=== PATIENT | female | born 1955 ===

== ENCOUNTER 2017-03-18 08:18 | Emergency (ER) | payer MEDICAID ==
[2017-03-18 08:27] VITALS: BP 126/75; PULSE 117; O2SAT 98; BMI 23.0
[2017-03-18] MEDS ORDERED: Albuterol-Ipratrop 3 mg / 0.5 (3 ml) UD INH STA (08:56)
[2017-03-18] MEDS ORDERED: Sodium Chloride 0.9% 500 ML IV STA (08:56)
--- NOTE | 2017-03-18 09:08 | ED PDOC ---
HPI: General Adult Time Seen by Provider: 03/18/17 08:35 Chief Complaint (Nursing): Flu-like Symptoms Chief Complaint (Provider): Flu-like Symptoms History Per: Patient History/Exam Limitations: no limitations Onset/Duration Of Symptoms: Days (x 4) Current Symptoms Are (Timing): Still Present Additional Complaint(s): Christy is a 61 year old female who presents to the [facility] complaining of headache, chest tightness, sore throat, and coughing with green sputum for 4 days. Patient also complaints of chest tightness and sore throat. States her CD 4 count is "good". Denies fever and chest pain. PMD: Ran Past Medical History Reviewed: Historical Data, Nursing Documentation, Vital Signs Vital Signs: Last Vital Signs Temp 99 F 03/18/17 11:08 Pulse 117 H 03/18/17 08:26 Resp BP 126/75 03/18/17 08:26 Pulse Ox 98 03/18/17 11:10 - Medical History PMH: Anemia, Anxiety, Asthma, Bronchitis, Depression, Gastritis, HIV, Osteoporosis - Surgical History Surgical History: - Family History Family History: States: Unknown Family Hx - Immunization History Hx Tetanus Toxoid Vaccination: No Hx Influenza Vaccination: Yes Hx Pneumococcal Vaccination: No - Home Medications Home Medications: Ambulatory Orders Medication Instructions Recorded Emtricitabine/Tenofovir Diso 1 tab PO DAILY 08/06/13 [Truvada 200 MG-300 MG] Nelfinavir [Viracept] 1,250 mg PO BID 08/06/13 Lubiprostone [Amitiza] 8 mcg PO BID 06/27/14 Fexofenadine HCl 60 mg PO DAILY PRN 07/15/14 Fluticasone Propionate [Flonase] 1 spr INH DAILY 07/21/14 Acetaminophen [Tylenol] 325 mg PO PRN PRN 10/07/14 Albuterol HFA [Ventolin HFA 90 0.09 mg IH DAILY 10/14/15 mcg/actuation (8 g)] Alprazolam [Xanax] 1 mg PO BID 10/14/15 Mometasone Furoate [Nasonex] 0.05 mg NS DAILY 10/14/15 Zolpidem Tartrate [Ambien] 10 mg PO HS 10/14/15 Benzonatate [Tessalon Perles] 100 mg PO BID #15 sgl 05/01/16 Cephalexin [cephalexin] 500 mg PO Q6 #28 cap 09/26/16 traMADol [Ultram] 50 mg PO Q6 #30 tab 09/26/16 Albuterol HFA [Ventolin HFA 90 2 puff IH [id number] PRN #1 bottle 03/18/17 mcg/actuation (8 g)] Azithromycin [Zithromax] 250 mg PO DAILY #4 tab 03/18/17 Ferrous Sulfate [Feosol] 324 mg PO TID #15 ect 03/18/17 - Allergies Allergies/Adverse Reactions: Allergies Allergy/AdvReac Type Severity Reaction Status Date / Time No Known Allergies Allergy Verified 09/26/16 16:07 Review of Systems ROS Statement: Except As Marked, All Systems Reviewed And Found Negative Constitutional: Negative for: Fever ENT: Positive for: Throat Pain Cardiovascular: Negative for: Chest Pain Respiratory: Positive for: Cough (with green sputum), Sputum (green) Neurological: Positive for: Other (Headache) Physical Exam - Reviewed Nursing Documentation Reviewed: Yes Vital Signs Reviewed: Yes - Physical Exam Appears: Positive for: Non-toxic Head Exam: Positive for: ATRAUMATIC, NORMAL INSPECTION, NORMOCEPHALIC Eye Exam: Positive for: Normal appearance ENT: Positive for: Pharynx Is (Clear), Other (Uvula midline). Negative for: Tonsillar Exudate Neck: Positive for: Normal Cardiovascular/Chest: Positive for: Regular Rate, Rhythm Respiratory: Positive for: Normal Breath Sounds Extremity: Positive for: Normal ROM Neurologic/Psych: Positive for: Alert - Laboratory Results Result Diagrams: 03/18/17 09:57 03/18/17 09:57 - ECG O2 Sat by Pulse Oximetry: 98 (RA) Pulse Ox Interpretation: Normal Medical Decision Making Medical Decision Making: Time: 08:55 Initial Impression: Upper Respiratory Infection/ Pneumonia / Bronchitis Initial Plan: - VBG Shock Panel - CMP - CBC - Chest X-ray - Duoneb 3 mg /0.5 mg (3ml) UD - Sodium Chloride 0.9% 500 ml IV 500 mls/hr - Tylenol 325 mg tab - Blood culture - Peak Flow Pre/Post Treatment - Influenza A B - Rapid Strep Group A Antigen Time: 10:00 Chest X-Ray FINDINGS: LUNGS: No active pulmonary disease. PLEURA: No significant pleural effusion identified. No pneumothorax apparent. CARDIOVASCULAR: Normal. OSSEOUS STRUCTURES: No significant abnormalities. VISUALIZED UPPER ABDOMEN: Normal. OTHER FINDINGS: None. IMPRESSION: No interval acute cardiopulmonary disease appreciated. Scribe Attestation: Documented by Azael Starks, acting as a scribe for Madisyn Domínguez MD Provider Scribe Attestation: All medical record entries made by the Scribe were at my direction and personally dictated by me. I have reviewed the chart and agree that the record accurately reflects my personal performance of the history, physical exam, medical decision making, and the department course for this patient. I have also personally directed, reviewed, and agree with the discharge instructions and disposition. Disposition - Clinical Impression Clinical Impression: Acute bronchitis, Anemia - Disposition Referrals: Dash Carvajal MD [Family Provider] - Disposition: Routine/Home Disposition Time: 11:10 Condition: IMPROVED Prescriptions: Albuterol HFA [Ventolin HFA 90 mcg/actuation (8 g)] 2 puff IH [id number] PRN #1 bottle PRN Reason: Shortness Of Breath Azithromycin [Zithromax] 250 mg PO DAILY #4 tab Ferrous Sulfate [Feosol] 324 mg PO TID #15 ect Instructions: Acute Bronchitis (ED), Anemia (ED) Forms: [employer] (Cym[employer])
[2017-03-18] MEDS ORDERED: Albuterol-Ipratrop 3 mg / 0.5 (3 ml) UD ONE (09:21)
[2017-03-18 09:54] LABS: VENOUS BLOOD GAS BASE EXCESS 2.7 mmol/L (0.0-2.0); VENOUS BLOOD GAS PCO2 33 mmHg (40-60)
--- NOTE | 2017-03-18 10:02 | RAD ---
HISTORY: Cough COMPARISON: Chest radiographs 08/20/2014. TECHNIQUE: Chest PA and lateral FINDINGS: LUNGS: No active pulmonary disease. PLEURA: No significant pleural effusion identified. No pneumothorax apparent. CARDIOVASCULAR: Normal. OSSEOUS STRUCTURES: No significant abnormalities. VISUALIZED UPPER ABDOMEN: Normal. OTHER FINDINGS: None. IMPRESSION: No interval acute cardiopulmonary disease appreciated.
[2017-03-18 10:08] LABS: BASO % 0.6 % (0.0-2.0); EOS % 0.4 % (0.0-4.0); HEMATOCRIT 30.9 % (34.0-47.0); LYMPH # 0.7 K/uL (1.0-4.3); LYMPH % 23.3 % (20.0-40.0); MEAN CELL VOLUME 77.2 fl (81.0-99.0); MEAN CORPUSCULAR HEMOGLOBIN 24.6 pg (27.0-31.0); MEAN CORPUSCULAR HGB CONC 31.8 g/dL (33.0-37.0); MEAN PLATELET VOLUME 7.9 fl (7.2-11.7); MONO # 0.4 K/uL (0.0-0.8); MONO % 11.6 % (0.0-10.0); NEUT % 64.1 % (50.0-75.0); RED CELL DISTRIBUTION WIDTH 15.4 % (11.5-14.5); WHITE BLOOD COUNT 3.1 K/uL (4.8-10.8)
[2017-03-18 10:39] LABS: ALB/GLOB RATIO 1.1 (1.0-2.1); ALKALINE PHOSPHATASE 98 U/L (38-126); ALT/SGPT 47 U/L (9-52); AST/SGOT 42 U/L (14-36); BILIRUBIN,TOTAL 0.2 mg/dl (0.2-1.3); BLOOD UREA NITROGEN 10 mg/dl (7-17); CALCIUM 8.8 mg/dL (8.4-10.2); CARBON DIOXIDE 22 mmol/L (22-30); CHLORIDE 105 mmol/L (98-107); GFR AFRICAN-AMERICAN > 60; GLUCOSE,RANDOM 97 mg/dL (65-105); POTASSIUM 3.8 MMOL/L (3.6-5.0); SODIUM 138 mmol/l (132-148); TOTAL PROTEIN 8.1 G/DL (6.3-8.2)
[2017-03-18 11:09] VITALS: TEMP 99
== END 2017-03-18 11:26 | disposition home or self-care (01) ==
LOC: H.ER 08:18
DX: J20.9 Acute bronchitis, unspecified (principal); D64.9 Anemia, unspecified; F32.9 Major depressive disorder, single episode, unspecified; F41.9 Anxiety disorder, unspecified; J45.909 Unspecified asthma, uncomplicated
CPT/HCPCS: 71020; 80053; 82803; 85025; 87040; 87070; 87430; 87804; 94150; 94640; 96360; 99283; J7040

== ENCOUNTER 2018-06-19 13:34 | Inpatient (IN) | payer MEDICAID ==
[2018-06-19 13:35] VITALS: BMI 23.0
[2018-06-19 13:49] VITALS: O2SAT 98
--- NOTE | 2018-06-19 16:50 | RAD ---
Date of service: 06/19/2018 HISTORY: Pre-admission COMPARISON: 03/18/2017. TECHNIQUE: Chest PA and lateral FINDINGS: LINES AND TUBES: None. LUNG AND PLEURA: The lungs are well inflated and clear. No pleural effusion or pneumothorax. HEART AND MEDIASTINUM: The heart is not enlarged. No aortic atherosclerotic calcifications present. The hilar and mediastinal contours are within normal limits. SKELETAL STRUCTURES: The bony structures are within normal limits for the patient's age. VISUALIZED UPPER ABDOMEN: Normal. OTHER FINDINGS: None. IMPRESSION: No active pulmonary disease.
[2018-06-19 17:15] LABS: BASO % 0.8 % (0.0-2.0); EOS # 0.1 K/uL (0.0-0.7); EOS % 1.1 % (0.0-4.0); HEMOGLOBIN 10.9 g/dL (12.0-16.0); LYMPH # 1.1 K/uL (1.0-4.3); LYMPH % 18.3 % (20.0-40.0); MEAN CELL VOLUME 77.2 fl (81.0-99.0); MEAN CORPUSCULAR HEMOGLOBIN 24.9 pg (27.0-31.0); MEAN CORPUSCULAR HGB CONC 32.2 g/dL (33.0-37.0); MEAN PLATELET VOLUME 7.9 fl (7.2-11.7); MONO # 0.5 K/uL (0.0-0.8); MONO % 7.7 % (0.0-10.0); NEUT # 4.2 K/uL (1.8-7.0); NEUT % 72.1 % (50.0-75.0); NRBC % 0.1 % (0.0-0.0); RBC 4.4 Mil/uL (3.80-5.20); RED CELL DISTRIBUTION WIDTH 14.1 % (11.5-14.5); WHITE BLOOD COUNT 5.9 K/uL (4.8-10.8)
[2018-06-19 17:22] LABS: SQUAMOUS EPITHIAL 1 /hpf (0-5); URINE BACTERIA RARE (<OCC); URINE BILIRUBIN NEGATIVE (NEGATIVE); URINE BLOOD NEGATIVE (NEGATIVE); URINE CLARITY SLIGHTY-CLOUDY (Clear); URINE COLOR YELLOW (YELLOW); URINE GLUCOSE (UA) NEG (NEGATIVE); URINE LEUKOCYTE ESTERASE NEG Leu/uL (Negative); URINE PROTEIN NEGATIVE (NEGATIVE); URINE UROBILINOGEN 0.2-1.0 mg/dL (0.2-1.0)
[2018-06-19 17:28] LABS: ALB/GLOB RATIO 1.2 (1.0-2.1); ALBUMIN 4.7 g/dL (3.5-5.0); ALT/SGPT 48 U/L (9-52); AST/SGOT 48 U/L (14-36); BLOOD UREA NITROGEN 12 mg/dl (7-17); CALCIUM 10.3 mg/dL (8.4-10.2); GFR NON-AFRICAN AMERICAN 50
[2018-06-19 17:42] LABS: BARBITURATES, UR NEGATIVE (NEGATIVE); BENZODIAZEPINES, UR POSITIVE (NEGATIVE); OPIATES, UR NEGATIVE (NEGATIVE); PHENCYCLIDINE, UR NEGATIVE (NEGATIVE)
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
[2018-06-19] MEDS ORDERED: Magnesium Hydroxide Susp 30 ml UD PO PRN (20:24)
[2018-06-19] MEDS ORDERED: Bismuth Subsalicylate 262 mg/15 ml Sus (240 ml) PO PRN (20:24)
[2018-06-19] MEDS ORDERED: Alum-Mag Hydrox-Simethicone Susp (30 mL) PO PRN (20:24)
--- NOTE | 2018-06-19 20:53 | PCM.BM ---
<Jin Walker - Last Filed: 06/19/18 20:51> Treatment Plan Problems - Problems identified on initial assessmt Feelings of Worthlessness Date Initiated: 06/19/18 Time Initiated: 20:51 Assessment reference: NA Status: Active Hopelessness/Helplessness Date Initiated: 06/19/18 Time Initiated: 20:52 Assessment reference: NA Status: Active Altered Sleep Patterns Date Initiated: 06/19/18 Time Initiated: 20:52 Assessment reference: NA Status: Active Less than Optimal Nutrition Date Initiated: 06/19/18 Time Initiated: 20:53 Assessment reference: NA Status: Active Treatment assets and liabiliti Patient Assests: cooperative, self-reliant, ADL independent, good support system, negotiates basic needs Patient Liabilities: physical pain, medical problems (HIV) - Milieu Protocol Maintain good personal hygiene: daily Encourage regular showers, daily Remind patient to perform daily oral care, daily Assist patient to perform ADL's Conduct patient checks and document Observation sheet: Q15 minutes Maintain personal safety: every shift Educate patient to report safety concerns to staff, every shift Monitor environment for contraband/sharps Medication safety: Monitor for expected outcome, potential side effects: every shift, Assess barriers to learning: every shift, Assess readiness for medication education: every shift <Idania Chacon - Last Filed: 06/20/18 11:37> - Diagnosis (1) Mood disorder Status: Acute Interventions: Medication management, Individual and group therapy, Psychoeducation 06/20/18 11:37 (2) Generalized anxiety disorder Status: Acute Interventions: Medication management, Individual and group therapy, Psychoeducation 06/20/18 11:38 (3) Benzodiazepine abuse Status: Acute Interventions: Medication management, Individual and group therapy, Psychoeducation 06/20/18 11:38 <Dinorah Andrew - Last Filed: 06/23/18 13:45> Family Contact Family involvement: Family/SO is involved Family contact: Patient agrees to contact, Family has been contacted by patient, Telephone contact initiated by staff Family contact name: Nabil- son Family contacted how many times per week?: 2 - Outside Agency [place] [facility] Care involvment: Information-sharing Agency contact name: Anatoliy Barrera APN Agency contact number: [phone] [facility] Care involvment: Information-sharing Agency contact name: Cornelius Landry Agency contact number: [phone] - Goals for Treatment Patient goals for treatment: Pt will improve overall mood. Pt will be free of suicide thoughts. Pt will develop strategies to reduce anxiety symtoms and improve coping skills. Pt will attend clinical and activity groups. Pt will be compliant with her medications. Discharge/Continuing Care - Education Needs Education Needs: Patient Medication, Patient Diagnosis/Disease Process, Patient Coping Skills, Patient Community resources, Patient Activities of Daily Living, Patient Health Practices/Safety, Patient Personal Hygiene/Grooming, Patient Aftercare Safety Plan - Discharge Discharge Criteria: Tolerates medication w/o severe side effects, Free of Suicidal thoughts, Free of agitation, Normal sleep pattern, Ability to care for self, Reduction of target symptoms Discharge to:: Home - Additional Comments 06/23/18 13:42 LATE ENTRY FROM 06/20/2018: Pt seen and discussed in team meeting. Reason for hospitalization reviewed and discussed. Pt reported she was referred to the ED by outpatient provider, Anatoliy Barrera APN at the [facility]. Reportedly, pt has been misusing her prescriptions of Xanax and Ambien and was confronted by [employer], Anatoliy Barrera. While at the office, pt became highly anxious, confrontational with [employer], and left the providers office. [employer]ACHINE called the [place] police and EMS after pt stated "If something happens to me because you do not want to give me the medication I am requesting; it would be your fault." Reportedly, pt ran out of the medications that was previously prescribed to her in May 2018. At time of assessment, pt denied suicide statement to CAILIN. Pt reported that she was anxious because [employer] made me wait for last and started to scream at me. Pt reported she was feeling sad because she did not have her medications. Pt reported that she takes Xanax for her depression and Ambien to sleep. Pt's medical and social issues reviewed and discussed. Attending psychiatrist provided psycho-education regarding the misuse of Xanax and Ambien. Pt informed by attending mD that she will not be prescribed Xanax and Ambien while on the unit. Attending MD reviewed and discussed recommendations for Remeron, pt verbalized agreement. Tx plan reviewed and discussed. SW will continue to follow case. Pt signed consent for son, Nabil ([phone]). - Treatment Team Participation Discussed with Family/SO: No Was Patient/Family/SO present at Treatment Team Meeting: Yes
[2018-06-20 07:23] LABS: IRON 32 ug/dL (37-170)
[2018-06-20 07:36] LABS: % IRON SATURATION 8 % (20-55); TOTAL IRON BINDING CAPACITY 389 ug/dL (250-450)
[2018-06-20 07:48] LABS: T4 8.16 ug/dl (5.5-11.0)
[2018-06-20 08:05] LABS: FERRITIN 4.9 ng/Ml (11.1-264.0)
[2018-06-20] MEDS: raNITIdine HCl 150 mg/10 ml Soln Cup PO SCH ×2 (08:56→16:36)
[2018-06-20] MEDS: Pantoprazole 40 mg EC Tab PO SCH (08:56)
--- NOTE | 2018-06-20 10:17 | CARD ---
APPROVED REPORT Date of service: 06/19/2018 EKG Measurement Heart [id number] <Conclusion> Normal sinus rhythm Possible Left atrial enlargement Borderline ECG
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
[2018-06-20 13:24] LABS: FOLATE 7.3 ng/mL
--- NOTE | 2018-06-20 13:59 | CP.PCM.CON ---
<Robert Silva - Last Filed: 06/20/18 14:50> History of Present Illness - History of Present Illness History of Present Illness: 63 YO M w/ PMH of HIV, Depression, Asthma, Anxiety was seen by Anatoliy Barrera for generalized anxiety disorder on 06/19/18. PAtient was sent to the ER by her outpatient provider after he refused to give her Xanex and Ambien. Patient became very upset at the office and they had to call the police because of her erratic, threatening, behavior and comments. PMD: Dash Carvajal PMH: HIV, Gastritis, constipation, Anxiety, Borderline Personality, cateracts, and insomnia PSH:Partial Hysterectomy 05/1992, Rectum polypectomy 07/2014, Colonoscopy 10/2013, EGD ( 10/2014), and hemorrhoidectomy Allergy: NKDA FH:Father: Prostate cancer (decreased), DM. Son: alive, Mother: Alive, SH:Nonsmoker , no illicit drug use. Past Patient History - Infectious Disease Hx of Infectious Diseases: None - Past Medical History & Family History Past Medical History?: Yes - Past Social History Alcohol: None Drugs: Prescription medications (benzos) - CARDIAC Hx Cardiac Disorders: No Hx Hypertension: No - PULMONARY Hx Asthma: Yes Hx Bronchitis: Yes - NEUROLOGICAL HX Cerebrovascular Accident: No Hx Seizures: No - HEENT Hx HEENT Problems: Yes - ENDOCRINE/METABOLIC Hx Endocrine Disorders: No - HEMATOLOGICAL/ONCOLOGICAL Hx Anemia: Yes Hx Human Immunodeficiency Virus (HIV): Yes - INTEGUMENTARY Hx Dermatological Problems: No - MUSCULOSKELETAL/RHEUMATOLOGICAL Hx Osteoporosis: Yes - GASTROINTESTINAL Hx Gastritis: Yes - GENITOURINARY/GYNECOLOGICAL Hx Sexually Transmitted Disorders: No - PSYCHIATRIC Hx Anxiety: Yes Hx Depression: Yes - SURGICAL HISTORY Hx Surgeries: Yes Hx Hysterectomy: Yes Other/Comment: Hemmoroidectomy(2014) - ANESTHESIA Hx Anesthesia: Yes Hx Anesthesia Reactions: Yes (n/v) Meds Allergies/Adverse Reactions: Allergies Allergy/AdvReac Type Severity Reaction Status Date / Time No Known Allergies Allergy Verified 03/21/17 18:50 - Medications Medications: Current Medications Acetaminophen (Tylenol 325mg Tab) 650 mg PO Q4 PRN PRN Reason: Pain, moderate (4-7) Al Hydrox/Mg Hydrox/Simethicone (Maalox Plus 30 Ml) 30 ml PO Q4 PRN PRN Reason: Dyspepsia Bismuth Subsalicylate (Pepto-Bismol) 524 mg PO Q4 PRN PRN Reason: Diarrhea Diphenhydramine HCl (Benadryl) 50 mg PO HS PRN PRN Reason: Sleep Last Admin: 06/19/18 22:51 Dose: 50 mg Home Med (Bictegrav/Emtricit/Tenofov Ala [Biktarvy 50-200-25 Mg Tablet]) 1 tab PO DAILY [facility] Lorazepam (Ativan) 1 mg PO Q8 PRN PRN Reason: Withdrawal Lorazepam (Ativan) 0.5 mg PO TID [facility] Stop: 06/21/18 23:00 Last Admin: 06/20/18 12:26 Dose: 0.5 mg Lorazepam (Ativan) 0.5 mg PO Q8 PRN PRN Reason: Withdrawal Magnesium Hydroxide (Milk Of Magnesia) 30 ml PO HS PRN PRN Reason: Constipation Mirtazapine (Remeron) 15 mg PO HS [facility] Pantoprazole Sodium (Protonix Ec Tab) 40 mg PO DAILY [facility] Last Admin: 06/20/18 08:56 Dose: 40 mg Ranitidine HCl (Zantac Soln 5ml) 75 mg PO BID [facility] Last Admin: 06/20/18 08:56 Dose: 75 mg Trazodone HCl (Desyrel) 50 mg PO HS PRN PRN Reason: Sleep Physical Exam - Constitutional Appears: No Acute Distress - Head Exam Head Exam: NORMAL INSPECTION - Eye Exam Eye Exam: Normal appearance - Respiratory Exam Respiratory Exam: Clear to Auscultation Bilateral, NORMAL BREATHING PATTERN. absent: Rhonchi, Wheezes - GI/Abdominal Exam GI & Abdominal Exam: Normal Bowel Sounds, Soft. absent: Tenderness - Extremities Exam Extremities exam: Positive for: normal inspection - Neurological Exam Neurological exam: Alert, CN II-XII Intact, Oriented x3 - Skin Skin Exam: Normal Color, Warm Results - Vital Signs Recent Vital Signs: Last Vital Signs Temp 98.1 F 06/20/18 06:00 Pulse 66 06/20/18 06:00 Resp 19 06/20/18 06:00 BP 103/67 06/20/18 06:00 Pulse Ox 98 06/20/18 00:43 - Labs Result Diagrams: 06/19/18 16:56 06/19/18 16:56 Labs: Laboratory Results - last 24 hr 06/19/18 06/19/18 06/19/18 16:56 16:56 16:56 WBC 5.9 RBC 4.40 Hgb 10.9 L Hct 34.0 MCV 77.2 L D MCH 24.9 L MCHC 32.2 L RDW 14.1 Plt Count 226 MPV 7.9 Neut % (Auto) 72.1 Lymph % (Auto) 18.3 L [place] % (Auto) 7.7 Eos % (Auto) 1.1 Baso % (Auto) 0.8 Neut # (Auto) 4.2 Lymph # (Auto) 1.1 [place] # (Auto) 0.5 Eos # (Auto) 0.1 Baso # (Auto) 0.0 Sodium 139 Potassium 3.8 Chloride 100 Carbon Dioxide 24 Anion Gap 19 BUN 12 Creatinine 1.1 Est GFR ( Amer) > 60 Est GFR (Non-Af Amer) 50 Random Glucose 90 Calcium 10.3 H Iron TIBC % Saturation Ferritin Total Bilirubin 0.3 AST 48 H ALT 48 Alkaline Phosphatase 137 H Total Protein 8.6 H Albumin 4.7 Globulin 3.8 Albumin/Globulin Ratio 1.2 Triglycerides Cholesterol LDL Cholesterol Direct HDL Cholesterol Vitamin B12 Folate Free T4 Thyroxine (T4) TSH 3rd Generation Urine Color Urine Clarity Urine pH Ur Specific Sabael Urine Protein Urine Glucose (UA) Urine Ketones Urine Blood Urine Nitrate Urine Bilirubin Urine Urobilinogen Ur Leukocyte Esterase Urine RBC (Auto) Urine Microscopic WBC Ur Squamous Epith Cells Urine Bacteria Urine Opiates Screen Negative Urine Methadone Screen Negative Ur Barbiturates Screen Negative Ur Phencyclidine Scrn Negative Ur Amphetamines Screen Negative U Benzodiazepines Scrn Positive U Oth Cocaine Metabols Negative U Cannabinoids Screen Negative Alcohol, Quantitative < 10 06/19/18 06/20/18 06/20/18 16:56 06:40 06:40 WBC RBC Hgb Hct MCV MCH MCHC RDW Plt Count MPV Neut % (Auto) Lymph % (Auto) [place] % (Auto) Eos % (Auto) Baso % (Auto) Neut # (Auto) Lymph # (Auto) [place] # (Auto) Eos # (Auto) Baso # (Auto) Sodium Potassium Chloride Carbon Dioxide Anion Gap BUN Creatinine Est GFR ( Amer) Est GFR (Non-Af Amer) Random Glucose Calcium Iron 32 L TIBC 389 % Saturation 8 L Ferritin 4.9 L Total Bilirubin AST ALT Alkaline Phosphatase Total Protein Albumin Globulin Albumin/Globulin Ratio Triglycerides 81 D Cholesterol 183 LDL Cholesterol Direct 99 HDL Cholesterol 58 Vitamin B12 758 Folate 7.3 Free T4 Thyroxine (T4) 8.16 TSH 3rd Generation 3.27 Urine Color Yellow Urine Clarity Slighty-cloudy Urine pH 8.0 Ur Specific Sabael 1.011 Urine Protein Negative Urine Glucose (UA) Neg Urine Ketones Negative Urine Blood Negative Urine Nitrate Negative Urine Bilirubin Negative Urine Urobilinogen 0.2-1.0 Ur Leukocyte Esterase Neg Urine RBC (Auto) 1 Urine Microscopic WBC 1 Ur Squamous Epith Cells 1 Urine Bacteria Rare Urine Opiates Screen Urine Methadone Screen Ur Barbiturates Screen Ur Phencyclidine Scrn Ur Amphetamines Screen U Benzodiazepines Scrn U Oth Cocaine Metabols U Cannabinoids Screen Alcohol, Quantitative 06/20/18 06:40 WBC RBC Hgb Hct MCV MCH MCHC RDW Plt Count MPV Neut % (Auto) Lymph % (Auto) [place] % (Auto) Eos % (Auto) Baso % (Auto) Neut # (Auto) Lymph # (Auto) [place] # (Auto) Eos # (Auto) Baso # (Auto) Sodium Potassium Chloride Carbon Dioxide Anion Gap BUN Creatinine Est GFR ( Amer) Est GFR (Non-Af Amer) Random Glucose Calcium Iron TIBC % Saturation Ferritin Total Bilirubin AST ALT Alkaline Phosphatase Total Protein Albumin Globulin Albumin/Globulin Ratio Triglycerides Cholesterol LDL Cholesterol Direct HDL Cholesterol Vitamin B12 Folate Free T4 1.33 Thyroxine (T4) TSH 3rd Generation Urine Color Urine Clarity Urine pH Ur Specific Sabael Urine Protein Urine Glucose (UA) Urine Ketones Urine Blood Urine Nitrate Urine Bilirubin Urine Urobilinogen Ur Leukocyte Esterase Urine RBC (Auto) Urine Microscopic WBC Ur Squamous Epith Cells Urine Bacteria Urine Opiates Screen Urine Methadone Screen Ur Barbiturates Screen Ur Phencyclidine Scrn Ur Amphetamines Screen U Benzodiazepines Scrn U Oth Cocaine Metabols U Cannabinoids Screen Alcohol, Quantitative Assessment & Plan - Assessment and Plan (Free Text) Assessment: 63 YO M w/ PMH of HIV, Depression, Asthma, Anxiety is admitted for voluntary admission after becoming erratic when she did not receive xanax and Ambien 1) HIV - C/W Bictarvy will order meds to bed since patient does not have her medications with her - Undetectable viral load 2)Constipation - Colace 3) Gastritis: - Protonix 40 mg - Rantidine 75mg PO BID 4) Anxiety: - .5mg TID 5) Insomnia - Trazodone 6) Microcytic Anemia - Hb:10.9, MCV: 77 - Start ferrous sulfate 325 7) DVT prophylaxis - Ambulate <Lyubov Dueñas - Last Filed: 06/21/18 16:36> Meds - Medications Medications: Current Medications Acetaminophen (Tylenol 325mg Tab) 650 mg PO Q4 PRN PRN Reason: Pain, moderate (4-7) Al Hydrox/Mg Hydrox/Simethicone (Maalox Plus 30 Ml) 30 ml PO Q4 PRN PRN Reason: Dyspepsia Bismuth Subsalicylate (Pepto-Bismol) 524 mg PO Q4 PRN PRN Reason: Diarrhea Diphenhydramine HCl (Benadryl) 50 mg PO HS PRN PRN Reason: Sleep Last Admin: 06/20/18 21:56 Dose: 50 mg Docusate Sodium (Colace) 100 mg PO DAILY [facility] Last Admin: 06/21/18 08:56 Dose: 100 mg Ferrous Sulfate (Feosol) 325 mg PO DAILY [facility] Last Admin: 06/21/18 08:56 Dose: 325 mg Home Med (Bictegrav/Emtricit/Tenofov Ala [Biktarvy 50-200-25 Mg Tablet]) 1 tab PO DAILY [facility] Last Admin: 06/21/18 08:56 Dose: 1 tab Lorazepam (Ativan) 1 mg PO Q8 PRN PRN Reason: Withdrawal Lorazepam (Ativan) 0.5 mg PO TID [facility] Stop: 06/21/18 23:00 Last Admin: 06/21/18 12:40 Dose: 0.5 mg Lorazepam (Ativan) 0.5 mg PO Q8 PRN PRN Reason: Withdrawal Magnesium Hydroxide (Milk Of Magnesia) 30 ml PO HS PRN PRN Reason: Constipation Mirtazapine (Remeron) 15 mg PO HS [facility] Last Admin: 06/20/18 21:56 Dose: 15 mg Pantoprazole Sodium (Protonix Ec Tab) 40 mg PO DAILY [facility] Last Admin: 06/21/18 08:57 Dose: 40 mg Ranitidine HCl (Zantac Soln 5ml) 75 mg PO BID [facility] Last Admin: 06/21/18 08:57 Dose: 75 mg Trazodone HCl (Desyrel) 50 mg PO HS PRN PRN Reason: Sleep Last Admin: 06/20/18 23:45 Dose: 50 mg Results - Vital Signs Recent Vital Signs: Last Vital Signs Temp 98.6 F 06/21/18 16:21 Pulse 62 06/21/18 16:21 Resp 18 06/21/18 16:21 BP 114/91 H 06/21/18 16:21 Pulse Ox 98 06/20/18 00:43 - Labs Result Diagrams: 06/19/18 16:56 06/19/18 16:56 Labs: Laboratory Results - last 24 hr 06/20/18 06:40 RPR Nonreactive Attending/Attestation - Attestation I have personally seen and examined this patient.: Yes I have fully participated in the care of the patient.: Yes I have reviewed all pertinent clinical information: Yes Notes (Text): 06/21/18 16:36 agree with findings and plan as above.
[2018-06-20] MEDS: Patient's Own Med (Bictegrav/Emtricit/Tenofov Ala [Biktarvy 50-200-25 Mg Tablet] 1 TAB) PO SCH (18:55)
[2018-06-21] MEDS: Patient's Own Med (Bictegrav/Emtricit/Tenofov Ala [Biktarvy 50-200-25 Mg Tablet] 1 TAB) PO SCH (08:56)
[2018-06-21] MEDS: raNITIdine HCl 150 mg/10 ml Soln Cup PO SCH ×2 (08:57→16:41)
[2018-06-21] MEDS: Pantoprazole 40 mg EC Tab PO SCH (08:57)
[2018-06-21] MEDS ORDERED: Bisacodyl 5mg EC Tab PO PRN (18:38)
--- NOTE | 2018-06-21 18:40 | PCM.PYCHPN ---
Psychiatric Progress Note - Psychiatric Progress Note Patient seen today, length of contact: chart reviewed case discussed with team pt seen with primary rn Patient Chief Complaint: reports is feeling less anxious, is having trouble sleeping received prn medications last, reportedly felt dizzy, admitted was evaluated by primary rx, did not fall. staff report pt has been rx adherent has been seen in unit interacting with select peers Problems Identified/Issues Discussed: alteration in mood, sleep, coping Medical Problems: per chart Diagnostic Results: per psychiatry, per medicine, per nursing, per social work, per recreational therapy DSM 5 Symptoms Update: anxiety-receiving lorazepam in decreasing amount to decrease ?w/d benzodiazapine, pt denies shakes, tremors, involuntary movements Medication Change: Yes (decrease lorazepam to 0.5mg po bid) Medical Record Reviewed: Yes Consults ordered or reviewed: pt being followed by medical team Mental Status Examination - Cognitive Function Orientation: Person, Place, Situation, Time Attention: WNL Concentration: WNL Association: WNL Fund of Knowledge: WNL Decription of patient's judgement and insights: somewhat impaired - Mood Mood: Anxious - Affect Affect: Broad - Speech Speech: Appropriate - Formal Thought Process Formal Thought Process: Circumstantial - Homicidal Ideation Homicidal Ideation: No Goal/Treatment Plan - Goal/Treatment Plan Need for Continued Stay: Remain at risks for inpatient hospitalization, Discharge may exacerbated symptoms Progress Toward Problem(s) and Goals/Treatment Plan: inpt milieu vital signs per clinical status and per protocol pt verbally agreeable to be seen by this racebook writer with primary internet sales manager with pt events leading to admission-pt was seen at [facility]-pt had presented stating that she has3-4 days of medicine left (alprazolam/zplpidem), [facility] had been called to inform pharmacist that no further prescriptions for benzodiazepine/zolpidem would be prescribed adn that a pending refill should not be honored at this time. the pharmacist was explained that a recent urine toxicology was negative for benzodiazepine and that blood work was to ordered for safety. it was explained to patient that at that time (06/19/18) the urine that was drawn previously to the visit was negative for benzodiazepine-it was explained to pt at that time that a serum drug screen would be required to ascertain the presence of benziodiazepines/zolpidem. pt became upset stating at that time that this racebook writer was stopping her medications, it was clarified with pt at that time that pt if she was agreeable that a blopd test was required for safety (to confirm presence of zolpidem/benzodiazepine) and that once the presence of these medications were confirmed, additional prescriptions would be written. reviewed pt became upset, said that she might hurt herself at that time, pt did not respond to verbal redirection to discuss these statements, was yelling in waiting area of [facility] and threw bottle of water and left, 911 was called at that time for concerns of pt safety due to her statement and behavior, [facility] staff attempted to support pt in front of [facility], pt attempted to run when she saw ambulance and police and pt was redirected to ambulance for transport to [facility]. pt was reminded today that a medical research assistant was present in the two most recent sessions at [facility] with this racebook writer (including [id number]). pt apologized and said that she just acted in that fashion because she was overwhelmed and in crisis. continue current rx per primary attending psychiatry review with pt that she discuss sleeping pattern with night staff, prns available review with pt that lorazepam being prescribed while in pt is being weaned prns available discharge planning in progress Estimated Date of D/C: 06/23/18 - Smoking Cessation Smoking Cessation Initiated: No Reason for not providing: pt defers
[2018-06-22] MEDS: Patient's Own Med (Bictegrav/Emtricit/Tenofov Ala [Biktarvy 50-200-25 Mg Tablet] 1 TAB) PO SCH (09:05)
[2018-06-22] MEDS: Pantoprazole 40 mg EC Tab PO SCH (09:06)
[2018-06-22] MEDS: raNITIdine HCl 150 mg/10 ml Soln Cup PO SCH ×2 (09:07→17:27)
--- NOTE | 2018-06-22 21:40 | PCM.PYCHPN ---
Psychiatric Progress Note - Psychiatric Progress Note Patient seen today, length of contact: chart reviewed case discussed with team pt seen with primary rn Patient Chief Complaint: pt seen with primary rn reports is feeling less anxious, is having trouble sleeping prn rx not particularly helpful last night, reports broken sleep, defers any further notable dizziness, denies falls, shakes, tremors. reports appetite is fair to good, seen about unit is rx adherent. Problems Identified/Issues Discussed: feeling that anxiety is not any worse with decreased lorazepam alteration in mood, sleep, coping Medical Problems: per chart Diagnostic Results: per psychiatry, per medicine, per nursing, per social work, per recreational therapy DSM 5 Symptoms Update: anxiety same denies panic Medication Change: Yes (increase trazodone to 150mg po hs ) Medical Record Reviewed: Yes Consults ordered or reviewed: pt being seen by medical providers Mental Status Examination - Cognitive Function Orientation: Person, Place, Situation, Time Attention: WNL Concentration: WNL Association: WNL Fund of Knowledge: WN Decription of patient's judgement and insights: somewhat impaired - Mood Mood: Anxious Additional comments: pt able to have conversation with this senior writer and primary rn without notable or reported increased anxiety. in later evenin approx. 8pm noted to be in social area with peers, talking laughing. pt was verbally agreeable to change her room for pt access and was noted to smile and clap her hands when she became snyder of who her new roommate would be - Affect Affect: Broad - Speech Speech: Appropriate - Formal Thought Process Formal Thought Process: Circumstantial - Homicidal Ideation Homicidal Ideation: No Goal/Treatment Plan - Goal/Treatment Plan Need for Continued Stay: Remain at risks for inpatient hospitalization, Discharge may exacerbated symptoms Progress Toward Problem(s) and Goals/Treatment Plan: inpt milieu vital signs per clinical status and per protocol pt verbally agreeable to be seen by this senior writer with primary rn increase trazodone to 150mg po hs-get up slowly, falls precautions, review prn possible constipation-vitals signs to be taken before hs rx and one half hour after rx-pt verbally agreeable review with pt that she discuss sleeping pattern with night staff, prns available-review with pt that she is receiving mirtazepine 15mg po hs-side effect somnolence may help with appetite review with pt that lorazepam being prescribed while in pt is being weaned prns available discharge planning in progress Estimated Date of D/C: 06/23/18 - Smoking Cessation Smoking Cessation Initiated: No Reason for not providing: pt defers
[2018-06-23] MEDS: Patient's Own Med (Bictegrav/Emtricit/Tenofov Ala [Biktarvy 50-200-25 Mg Tablet] 1 TAB) PO SCH (08:55)
[2018-06-23] MEDS: Pantoprazole 40 mg EC Tab PO SCH (08:56)
[2018-06-23] MEDS: raNITIdine HCl 150 mg/10 ml Soln Cup PO SCH ×2 (08:57→17:07)
--- NOTE | 2018-06-23 19:27 | PCM.PYCHPN ---
Psychiatric Progress Note - Psychiatric Progress Note Patient seen today, length of contact: chart reviewed case discussed with team pt seen with primary rn Patient Chief Complaint: pt seen with primary rn pt reports feeling calmer, reportedly with increased trazodone dose felt dizziness. did not fall. pt was assessed by primary rn vital signs obtained by primary staff at the time. rx adherent. Problems Identified/Issues Discussed: feeling that anxiety is not any worse with decreased lorazepam alteration in mood, sleep, coping possible side effects trazodone increase pt noted about unit laughing out loud, moving about unit interacting with select peers, playing games in social area Medical Problems: per chart Diagnostic Results: per psychiatry, per medicine, per nursing, per social work, per recreational therapy DSM 5 Symptoms Update: improving mood less anxious Medication Change: Yes (stop trazodone start doxepin) Medical Record Reviewed: Yes Consults ordered or reviewed: seen by medical provider Mental Status Examination - Cognitive Function Orientation: Person, Place, Situation, Time Attention: WNL Concentration: WNL Association: WNL Fund of Knowledge: WNL Decription of patient's judgement and insights: improving - Mood Mood: Anxious Additional comments: less anxious - Affect Affect: Broad - Speech Speech: Appropriate - Formal Thought Process Formal Thought Process: No Impairment - Suicidal Ideation Suicidal Ideation: No - Homicidal Ideation Homicidal Ideation: No Goal/Treatment Plan - Goal/Treatment Plan Need for Continued Stay: Remain at risks for inpatient hospitalization, Discharge may exacerbated symptoms Progress Toward Problem(s) and Goals/Treatment Plan: inpt milieu vital signs per clinical status and per protocol pt verbally agreeable to be seen by this sign writer letterer or painter with primary rn stop trazodone ?dizziness side effects (with increased dose) , start 10mg po doxepin 10mg po hs prn insomnia tonight pt advised staff will do vital signs before before doxepin ad review with pt that she discuss sleeping pattern with night staff, prns available-review with pt that she is receiving mirtazepine 15mg po hs-side effect somnolence may help with appetite review with pt that lorazepam was being prescribed while in pt is being weaned prns not available upon discharge. pt will follow up at [facility] upon discharge for primary care-pt working with medical office supervisor to ascertain psychiatry provider discharge planning in progress Estimated Date of D/C: 06/23/18 - Smoking Cessation Smoking Cessation Initiated: No Reason for not providing: pt defers
[2018-06-24 05:52] VITALS: BP 104/55; PULSE 63; RESP 18; TEMP 97.2
[2018-06-24] MEDS: Patient's Own Med (Bictegrav/Emtricit/Tenofov Ala [Biktarvy 50-200-25 Mg Tablet] 1 TAB) PO SCH (08:42)
[2018-06-24] MEDS: raNITIdine HCl 150 mg/10 ml Soln Cup PO SCH (08:42)
[2018-06-24] MEDS: Pantoprazole 40 mg EC Tab PO SCH (08:43)
== END 2018-06-24 13:45 | disposition home or self-care (01) | DRG 430 ==
LOC: H.ER 13:34 → H.ERHOLD 15:52 → H.STEP 20:05
PROVIDERS: ADMIT Psychiatry & Neurology Psychiatry; ATTEND Psychiatry & Neurology Psychiatry
PROC: GZHZZZZ Group Psychotherapy (ICD-10-PCS; principal; 2018-06-19)
PROC: HZ56ZZZ Individual Psychotherapy for Substance Abuse Treatment, Psychoeducation (ICD-10-PCS; 2018-06-19)
DX: F39 Unspecified mood [affective] disorder (principal); F13.10 Sedative, hypnotic or anxiolytic abuse, uncomplicated; F41.1 Generalized anxiety disorder; G47.00 Insomnia, unspecified; J45.909 Unspecified asthma, uncomplicated; M81.0 Age-related osteoporosis without current pathological fracture; D50.9 Iron deficiency anemia, unspecified; K29.70 Gastritis, unspecified, without bleeding; K59.00 Constipation, unspecified; Z21 Asymptomatic human immunodeficiency virus [HIV] infection status

== ENCOUNTER 2018-07-22 13:24 | Emergency (ER) | payer MEDICAID ==
[2018-07-22 13:24] VITALS: BMI 23.0
[2018-07-22 13:37] VITALS: RESP 16
[2018-07-22] MEDS ORDERED: Albuterol 0.083% Inhal Sol (2.5 mg/3 mL) UD INH STA (15:14)
[2018-07-22] MEDS ORDERED: Albuterol 0.083% Inhal Sol (2.5 mg/3 mL) UD ONE (15:37)
--- NOTE | 2018-07-22 16:59 | ED PDOC ---
HPI: Influenza Time Seen by Provider: 07/22/18 15:30 Chief Complaint: Cough, Cold, Congestion Chief Complaint (Provider): congestion History Per: Patient Exam Limitations: no limitations Have you had recent travel within the past 21 days to any of: No Onset/Duration Of Symptoms: Hrs (lastnight ), Worse Since Symptoms include: headache, sore throat, cough, nasal congestion, other (chest tightness) Risk factors for flu complications: Yes: Other (HIV) Additional complaint(s):: 63 Y/O FEMALE WITH HX OF HIV PRESENTS TO THE ED WITH COMPLAINTS OF HEADACHE SINCE LASTNIGHT, CHILLS, PRODUCTIVE COUGH, CHEST TIGHTNESS NASAL CONGESTION WITH POST NASAL DRIP SINCE THIS AM. PT DENIES FEVER, SOB OR CHEST PAIN AT THIS TIME. PT HAS NOT TAKEN MEDS FOR SYMPTOMS. PT WORSE COMPLAINT AT THIS TIME IS HEADACHE. PT DENIES DIZZINESS, BLURRY VISION, WEAKNESS. Past Medical History Vital Signs: Last Vital Signs Temp 98.7 F 07/22/18 14:49 Pulse 97 H 07/22/18 14:49 Resp 16 07/22/18 14:49 BP 107/69 07/22/18 14:49 Pulse Ox 98 07/22/18 14:49 - Medical History PMH: Anemia, Anxiety, Asthma, Bronchitis, Depression, Gastritis, HIV, Osteoporosis Denies: Diabetes, Hepatitis, HTN, Seizures, Sexually Transmitted Disease - Surgical History Surgical History: - Family History Family History: States: Unknown Family Hx - Living Arrangements Living Arrangements: Alone - Social History Alcohol: None Drugs: Denies - Immunization History Hx Tetanus Toxoid Vaccination: No Hx Influenza Vaccination: Yes Hx Pneumococcal Vaccination: No - Home Medications Home Medications: Ambulatory Orders Medication Instructions Recorded Fexofenadine HCl 60 mg PO BID 07/15/14 Fluticasone Propionate [Flonase] 2 spray ISABELLE DAILY 07/21/14 Alprazolam [Xanax] 1 mg PO Q12 10/14/15 Zolpidem Tartrate [Ambien] 10 mg PO HS 10/14/15 Alendronate [Fosamax] 70 mg PO MO 06/19/18 Bictegrav/Emtricit/Tenofov Ala 1 tab PO DAILY 06/19/18 [Biktarvy 50-200-25 mg Tablet] Calcium Carbonate [Caltrate] 1 tab PO DAILY 06/19/18 Cholecalciferol (Vitamin D3) 2,000 unit PO DAILY 06/19/18 [Vitamin D3] DULoxetine [Cymbalta] 60 mg PO DAILY 06/19/18 Ketotifen Fumarate [Zaditor] 1 drop EACHEYE Q12 06/19/18 Lubiprostone [Amitiza] 24 mcg PO DAILY PRN 06/19/18 Pantoprazole Sodium [Protonix] 40 mg PO DAILY 06/19/18 Risperidone [Risperdal] 1 mg PO HS 06/19/18 Trazodone HCl 150 mg PO HS 06/19/18 raNITIdine [Zantac Soln 5ml] 5 ml PO BID 06/19/18 traMADol [Ultram] 50 mg PO Q12 PRN 06/19/18 Albuterol HFA [Ventolin HFA 90 1 puff IH Q4H PRN #1 inhaler 07/22/18 mcg/actuation (8 g)] Azithromycin [Z-Huan] 250 mg PO DAILY #6 tab 07/22/18 Benzonatate [Tessalon Perles] 100 mg PO TID PRN #21 sgl 07/22/18 Fluticasone Nasal [Flonase] 1 spry NS DAILY #1 bottle 07/22/18 - Allergies Allergies/Adverse Reactions: Allergies Allergy/AdvReac Type Severity Reaction Status Date / Time No Known Allergies Allergy Verified 07/22/18 13:33 Review of Systems ROS Statement: Except As Marked, All Systems Reviewed And Found Negative Constitutional: Positive for: Chills, Malaise Eyes: Negative for: Pain, Vision Change, Conjunctivae Inflammation, Eyelid In flammation, Redness ENT: Positive for: Nose Congestion (CLEAR, POST NASAL DRIP ). Negative for: Ear Pain Cardiovascular: Positive for: Chest Pain (WITH COUGHING ONLY ). Negative for: Palpitations, Light Headedness Respiratory: Positive for: Cough. Negative for: Shortness of Breath, SOB with Exertion Gastrointestinal: Negative for: Nausea, Vomiting, Abdominal Pain, Diarrhea Skin: Negative for: Rash, Lesions, Jaundice, Bruising Neurological: Negative for: Incoordination, Change in Speech, Dizziness Physical Exam - Reviewed Nursing Documentation Reviewed: Yes Vital Signs Reviewed: Yes - Physical Exam Appears: Positive for: Well, Non-toxic, No Acute Distress Head Exam: Positive for: ATRAUMATIC, NORMAL INSPECTION, NORMOCEPHALIC Skin: Positive for: Normal Color, Warm, DRY Eye Exam: Positive for: EOMI, Normal appearance, PERRL ENT: Positive for: Sinus Pain/Drainage (NASAL ( CLEAR DRAINAGE)), Nasal Congestion, Pharyngeal Erythema. Negative for: Tonsillar Swelling Neck: Positive for: Normal, Painless ROM Cardiovascular/Chest: Positive for: Regular Rate, Rhythm Respiratory: Positive for: Normal Breath Sounds, Other (COUGH WITH DEEP INSPIRATION ) Pulses-Radial (L): 2+ Pulses-Radial (R): 2+ Gastrointestinal/Abdominal: Positive for: Normal Exam, Soft Back: Positive for: Normal Inspection Extremity: Positive for: Normal ROM Neurological/Psych: Positive for: Awake, Alert, Normal Tone, Oriented - ECG O2 Sat by Pulse Oximetry: 98 - Radiology X-Ray: Interpreted by In X-Ray Interpretation: No Acute Disease - Progress ED Course And Treament: CXR INFLUENZA TYLENOL ALBUETROL 1700: PT REPORTS IMPROVEMENT AFTER ALBUTEROL AND TYLENOL. CHEST TIGHTNESS SUBSIDED. DISCUSSED CLINICAL FINDINGS WITH PT. PT WILL BE D/C HOME WITH RX FLONASE, Z-HUAN (IF NO IMPROVEMENT IN 2-3 DAYS WITH SUPPORTIVE CARE) AND TESSALON PEARLS. FOLLOW-UP WITH PMD WITHIN ONE WEEK. GIVEN RETURN TO ED PRECAUTIONS. Accession No. : [id number] Patient Name / ID : JATINDER Son / [id number] Exam Date : 07/22/2018 16:20:46 ( Approved ) Study Comment : Sex / Age : F / 63Y Creator : Hien Thomas MD Dictator : Hien Thomas MD Supervisor Rice Milling : Director Of Food And Beverage Services : Hien Thomas MD Approver2 : Report Date : 07/22/2018 16:54:54 My Comment : HISTORY: chest tightness/cough COMPARISON: Chest x-ray performed 06/19/18 TECHNIQUE: Chest PA and lateral FINDINGS: LUNGS: No focal consolidation. Please note that chest x-ray has limited sensitivity for the detection of pulmonary masses. PLEURA: No significant pleural effusion identified. No definite pneumothorax . CARDIOVASCULAR: Heart size appears within normal limits. No atherosclerotic calcification present. OSSEOUS STRUCTURES: Osseous demineralization. Degenerative changes. VISUALIZED UPPER ABDOMEN: Unremarkable. OTHER FINDINGS: None. IMPRESSION: No focal consolidation. Re-evaluation Time: 15:00 Condition: Improved Disposition - Clinical Impression Clinical Impression: URI with cough and congestion - Disposition Disposition: Routine/Home Disposition Time: 15:00 Condition: GOOD Prescriptions: Albuterol HFA [Ventolin HFA 90 mcg/actuation (8 g)] 1 puff IH Q4H PRN #1 inhaler PRN Reason: Cough Azithromycin [Z-Huan] 250 mg PO DAILY #6 tab Benzonatate [Tessalon Perles] 100 mg PO TID PRN #21 sgl PRN Reason: Cough Fluticasone Nasal [Flonase] 1 spry NS DAILY #1 bottle Instructions: Viral Upper Respiratory Infection, Adult (DC) Forms: [employer] (Irish) Print Language: AZERI - POA Present On Arrival: None
[2018-07-22 17:24] VITALS: BP 100/67; PULSE 91; TEMP 98.1
[2018-07-22 21:19] VITALS: O2SAT 98
== END 2018-07-22 17:24 | disposition home or self-care (01) ==
LOC: H.ER 13:24
DX: R05 Cough (principal); J06.9 Acute upper respiratory infection, unspecified; J45.909 Unspecified asthma, uncomplicated; Z86.59 Personal history of other mental and behavioral disorders; R09.89 Other specified symptoms and signs involving the circulatory and respiratory systems

== ENCOUNTER 2018-07-28 22:24 | Observation (INO) | payer MEDICAID ==
[2018-07-28 22:25] VITALS: BMI 23.0
[2018-07-29 01:02] LABS: BASO % 1.4 % (0.0-2.0); EOS # 0.1 K/uL (0.0-0.7); EOS % 1.9 % (0.0-4.0); HEMOGLOBIN 10.3 g/dL (12.0-16.0); LYMPH % 27.6 % (20.0-40.0); MEAN CELL VOLUME 75.6 fl (81.0-99.0); MEAN CORPUSCULAR HEMOGLOBIN 24.7 pg (27.0-31.0); MEAN CORPUSCULAR HGB CONC 32.7 g/dL (33.0-37.0); MEAN PLATELET VOLUME 7.5 fl (7.2-11.7); MONO # 0.4 K/uL (0.0-0.8); MONO % 10.3 % (0.0-10.0); NEUT # 2.2 K/uL (1.8-7.0); NEUT % 58.8 % (50.0-75.0); NRBC % 0.1 % (0.0-0.0); RBC 4.15 Mil/uL (3.80-5.20); RED CELL DISTRIBUTION WIDTH 15.1 % (11.5-14.5); WHITE BLOOD COUNT 3.7 K/uL (4.8-10.8)
[2018-07-29 01:11] LABS: BLOOD UREA NITROGEN 16 mg/dl (7-17); CALCIUM 10.2 mg/dL (8.4-10.2); GFR NON-AFRICAN AMERICAN > 60
[2018-07-29 01:14] LABS: ALB/GLOB RATIO 1.1 (1.0-2.1); ALBUMIN 4.3 g/dL (3.5-5.0); ALT/SGPT 41 U/L (9-52); AST/SGOT 55 U/L (14-36)
[2018-07-29] MEDS ORDERED: Magnesium Sulfate 2 gm/50 ml 2 GM/50 ML BAG IV STA ×2 (01:22→03:20)
[2018-07-29] MEDS ORDERED: Albuterol-Ipratrop 3 mg / 0.5 (3 ml) UD INH STA ×2 (01:24→03:20)
--- NOTE | 2018-07-29 01:36 | ED PDOC ---
HPI: Influenza Time Seen by Provider: 07/28/18 23:59 Chief Complaint: Cough, Cold, Congestion Chief Complaint (Provider): SOB and Cough History Per: Patient Exam Limitations: no limitations Onset/Duration Of Symptoms: Days (1.5 weeks) Additional complaint(s):: 63 y/o female with history of HIV, last viral load was undetectable, presents to the ED with shortness of breath and cough for 1.5 weeks. Patient was here a week ago and was complaining of cough and congestion and was diagnosed with URI and given a Z-pack as well as a nasal spray. Patient states that symptoms have since gotten worse and now she is additionally experiencing shortness of breath, chest tightness, and worsening dry cough. Past Medical History Reviewed: Historical Data, Nursing Documentation, Vital Signs Vital Signs: Last Vital Signs Temp 97.6 F 07/28/18 22:26 Pulse 102 H 07/28/18 22:26 Resp 18 07/28/18 22:26 BP 152/93 H 07/28/18 22:26 Pulse Ox 98 07/28/18 22:26 - Medical History PMH: Anemia, Anxiety, Asthma, Bronchitis, Depression, Gastritis, HIV, Osteoporosis Denies: Diabetes, Hepatitis, HTN, Seizures, Sexually Transmitted Disease - Surgical History Surgical History: - Family History Family History: States: Unknown Family Hx - Social History Current smoker - smoking cessation education provided: No Alcohol: None Drugs: Denies - Immunization History Hx Tetanus Toxoid Vaccination: No Hx Influenza Vaccination: Yes Hx Pneumococcal Vaccination: No - Home Medications Home Medications: Ambulatory Orders Medication Instructions Recorded Fexofenadine HCl 60 mg PO BID 07/15/14 Fluticasone Propionate [Flonase] 2 spray ISABELLE DAILY 07/21/14 Alprazolam [Xanax] 1 mg PO Q12 10/14/15 Zolpidem Tartrate [Ambien] 10 mg PO HS 10/14/15 Alendronate [Fosamax] 70 mg PO MO 06/19/18 Bictegrav/Emtricit/Tenofov Ala 1 tab PO DAILY 06/19/18 [Biktarvy 50-200-25 mg Tablet] Calcium Carbonate [Caltrate] 1 tab PO DAILY 06/19/18 Cholecalciferol (Vitamin D3) 2,000 unit PO DAILY 06/19/18 [Vitamin D3] DULoxetine [Cymbalta] 60 mg PO DAILY 06/19/18 Ketotifen Fumarate [Zaditor] 1 drop EACHEYE Q12 06/19/18 Lubiprostone [Amitiza] 24 mcg PO DAILY PRN 06/19/18 Pantoprazole Sodium [Protonix] 40 mg PO DAILY 06/19/18 Risperidone [Risperdal] 1 mg PO HS 06/19/18 Trazodone HCl 150 mg PO HS 06/19/18 raNITIdine [Zantac Soln 5ml] 5 ml PO BID 06/19/18 traMADol [Ultram] 50 mg PO Q12 PRN 06/19/18 Albuterol HFA [Ventolin HFA 90 1 puff IH Q4H PRN #1 inhaler 07/22/18 mcg/actuation (8 g)] Azithromycin [Z-Huan] 250 mg PO DAILY #6 tab 07/22/18 Benzonatate [Tessalon Perles] 100 mg PO TID PRN #21 sgl 07/22/18 Fluticasone Nasal [Flonase] 1 spry NS DAILY #1 bottle 07/22/18 Methylprednisolone [Medrol Dosepak] 4 mg PO ASDIR #1 pkg 07/29/18 levoFLOXacin [Levaquin] 500 mg PO DAILY #10 tab 07/29/18 - Allergies Allergies/Adverse Reactions: Allergies Allergy/AdvReac Type Severity Reaction Status Date / Time No Known Allergies Allergy Verified 07/22/18 13:33 Review of Systems ROS Statement: Except As Marked, All Systems Reviewed And Found Negative Cardiovascular: Positive for: Chest Pain (tightness) Respiratory: Positive for: Cough, Shortness of Breath Physical Exam - Reviewed Nursing Documentation Reviewed: Yes Vital Signs Reviewed: Yes - Physical Exam Appears: Positive for: Well, Non-toxic, No Acute Distress Head Exam: Positive for: ATRAUMATIC, NORMAL INSPECTION, NORMOCEPHALIC Skin: Positive for: Normal Color, Warm, DRY Eye Exam: Positive for: EOMI, Normal appearance, PERRL ENT: Positive for: Normal ENT Inspection Neck: Positive for: Normal, Painless ROM Cardiovascular/Chest: Positive for: Regular Rate, Rhythm. Negative for: Murmur Respiratory: Positive for: Rhonchi, Wheezing (bilateral expiratory wheeze), Respiratory Distress (mild) Gastrointestinal/Abdominal: Positive for: Normal Exam, Soft. Negative for: Tenderness Back: Positive for: Normal Inspection Extremity: Positive for: Normal ROM. Negative for: Pedal Edema, Deformity Neurological/Psych: Positive for: Awake, Alert, Normal Tone. Negative for: Motor/Sensory Deficits Medical Decision Making Medical Decision Making: Time: 01:22 Impression: 63 y/o with acute bronchitis Initial Plan: * Labs * Duonebs * Magnesium Sulfate * Solumedrol * Influenza A B 04:00 Labs reviewed no clinically significant abnormalities. Patient reports improvement of symptoms however patient still has persistent wheezing will order additional Magnesium Sulfate and duonebs. 04:13 Even after additional Mag and Duonebs ordered patient does not feel better. Will keep patient on observation status for bronchospasm, respiratory distress. ----- Scribe Attestation: Documented by Raimundo Miranda, acting as a scribe Fortunato Sandhu MD Provider Scribe Attestation: All medical record entries made by the Scribe were at my direction and personally dictated by me. I have reviewed the chart and agree that the record accurately reflects my personal performance of the history, physical exam, medical decision making, and the department course for this patient. I have also personally directed, reviewed, and agree with the discharge instructions and disposition - Laboratory Results Result Diagrams: 07/29/18 00:35 07/29/18 00:35 Lab Results: Total Bilirubin 0.5 mg/dl (0.2-1.3) 07/29/18 00:35 AST 55 U/L (14-36) H 07/29/18 00:35 ALT 41 U/L (9-52) 07/29/18 00:35 Alkaline Phosphatase 105 U/L (38-126) 07/29/18 00:35 Total Protein 8.2 G/DL (6.3-8.2) 07/29/18 00:35 Albumin 4.3 g/dL (3.5-5.0) 07/29/18 00:35 Globulin 3.9 gm/dL (2.2-3.9) 07/29/18 00:35 Albumin/Globulin Ratio 1.1 (1.0-2.1) 07/29/18 00:35 - ECG O2 Sat by Pulse Oximetry: 98 (RA) Pulse Ox Interpretation: Normal - Critical Care Total Time (In Min): 30 Documented Critical Care: Time excludes all time spent performint seperately billable procedures Disposition - Clinical Impression Clinical Impression: Acute bronchitis, Bronchospasm, Respiratory distress - Patient ED Disposition Is Patient to be Admitted: Yes Counseled Patient/Family Regarding: Studies Performed, Diagnosis - Disposition Disposition Time: 04:13 Condition: FAIR - Pt Status Changed To: Hospital Disposition Of: Observation
[2018-07-29] MEDS ORDERED: Magnesium Sulfate 2 gm/50 ml 2 GM/50 ML BAG ONE ×2 (01:39→03:26)
[2018-07-29] MEDS ORDERED: Albuterol-Ipratrop 3 mg / 0.5 (3 ml) UD ONE ×7 (01:39→20:41)
[2018-07-29] MEDS ORDERED: levoFLOXacin 750 mg in D5W 150 ML BAG IVPB SCH (05:29)
[2018-07-29 05:36] LABS: SQUAMOUS EPITHIAL < 1 /hpf (0-5); URINE BILIRUBIN NEGATIVE (NEGATIVE); URINE BLOOD NEGATIVE (NEGATIVE); URINE CLARITY CLEAR (Clear); URINE COLOR STRAW (YELLOW); URINE GLUCOSE (UA) NEG (NEGATIVE); URINE LEUKOCYTE ESTERASE SMALL Leu/uL (Negative); URINE PROTEIN NEGATIVE (NEGATIVE); URINE UROBILINOGEN 0.2-1.0 mg/dL (0.2-1.0)
[2018-07-29] MEDS ORDERED: Sodium Chloride 3% for Inhalation 4 ML VIAL.NEB IH PRN (05:36)
--- NOTE | 2018-07-29 05:47 | CP.PCM.HP ---
<Kiet Werner - Last Filed: 07/29/18 05:47> History of Present Illness - History of Present Illness History of Present Illness: 63 y/o F with a PMHx of HIV, asthma, anxiety and borderline personality presented to ED complaining of severe SOB, productive cough with thick green sputun and wheezing that began 2 weeks ago. Pt visited our ED, CXR with NO focal consolidation and d/c'ed home with Azithromycin, Albuterol, tessalon and fluticasone spray. Pt reports NO improvement with prescribed medications and decided to come due to severe SOB and inability to sleep. No ill contacts. No re cent travel. Pt denies fever, chills, chest pain, palpitations, N/V/D. PCP: Dr Woodson at [facility] as per EMR. -PMHx: HIV, asthma, gastritis, anxiety and borderline personality. On eCW: Hx of positive for M. gordonae. -PSHx: Hysterectomy -SHx: Never smoker, no alcohol and no rec drugs. ED Course: --VS with slight tachycardia and elevated BP. --CBC with leukopenia, CMP w/ increased AST, rapid influenza was negative. --Duoneb 9ml and 3mL, Solu-Medrol 125mg, MgSO4 2gr x2 were administered. Present on Admission - Present on Admission Any Indicators Present on Admission: No Review of Systems - Constitutional Constitutional: absent: Chills, Fever - EENT Eyes: absent: Blurred Vision, Change in Vision Nose/Mouth/Throat: absent: Hoarsness, Sore Throat, Neck Pain - Cardiovascular Cardiovascular: Dyspnea. absent: Chest Pain, Leg Edema, Palpitations - Respiratory Respiratory: Cough, Dyspnea - Gastrointestinal Gastrointestinal: absent: Abdominal Pain, Diarrhea, Nausea, Vomiting Past Patient History - Infectious Disease Hx of Infectious Diseases: None - Past Medical History & Family History Past Medical History?: Yes - Past Social History Alcohol: None Drugs: Denies - CARDIAC Hx Hypertension: No - PULMONARY Hx Asthma: Yes Hx Bronchitis: Yes - NEUROLOGICAL Hx Seizures: No - HEENT Hx HEENT Problems: Yes - ENDOCRINE/METABOLIC Hx Endocrine Disorders: No - HEMATOLOGICAL/ONCOLOGICAL Hx Anemia: Yes Hx Human Immunodeficiency Virus (HIV): Yes - INTEGUMENTARY Hx Dermatological Problems: No - MUSCULOSKELETAL/RHEUMATOLOGICAL Hx Osteoporosis: Yes - GASTROINTESTINAL Hx Gastritis: Yes - GENITOURINARY/GYNECOLOGICAL Hx Sexually Transmitted Disorders: No - PSYCHIATRIC Hx Anxiety: Yes Hx Depression: Yes - SURGICAL HISTORY Other/Comment: Hemmoroidectomy(2015) - ANESTHESIA Hx Anesthesia: Yes Hx Anesthesia Reactions: Yes (n/v) Meds Allergies/Adverse Reactions: Allergies Allergy/AdvReac Type Severity Reaction Status Date / Time No Known Allergies Allergy Verified 07/22/18 13:33 Physical Exam - Constitutional Appears: No Acute Distress - Head Exam Head Exam: ATRAUMATIC, NORMOCEPHALIC - Eye Exam Eye Exam: EOMI, Normal appearance - ENT Exam ENT Exam: Mucous Membranes Moist, Normal Oropharynx - Neck Exam Neck exam: Positive for: Full Rom. Negative for: Lymphadenopathy, Meningismus, Thyromegaly - Respiratory Exam Respiratory Exam: Rhonchi, Wheezes, NORMAL BREATHING PATTERN. absent: Respiratory Distress - Cardiovascular Exam Cardiovascular Exam: Tachycardia, +S1, +S2 - GI/Abdominal Exam GI & Abdominal Exam: Soft. absent: Guarding, Rebound, Rigid, Tenderness - Extremities Exam Extremities exam: Positive for: full ROM. Negative for: calf tenderness, pedal edema, tenderness - Neurological Exam Neurological exam: Alert, Oriented x3 Results - Vital Signs Recent Vital Signs: Last Vital Signs Temp 98.9 F 07/29/18 04:23 Pulse 98 H 07/29/18 04:23 Resp 18 07/29/18 04:23 BP 138/79 07/29/18 04:23 Pulse Ox 98 07/29/18 04:33 - Labs Result Diagrams: 07/29/18 00:35 07/29/18 00:35 Labs: Laboratory Results - last 24 hr 07/29/18 07/29/18 07/29/18 00:35 00:35 00:35 WBC 3.7 L RBC 4.15 Hgb 10.3 L Hct 31.4 L MCV 75.6 L MCH 24.7 L MCHC 32.7 L RDW 15.1 H Plt Count 173 MPV 7.5 Neut % (Auto) 58.8 Lymph % (Auto) 27.6 Graham % (Auto) 10.3 H Eos % (Auto) 1.9 Baso % (Auto) 1.4 Neut # (Auto) 2.2 Lymph # (Auto) 1.0 Graham # (Auto) 0.4 Eos # (Auto) 0.1 Baso # (Auto) 0.0 Sodium 138 Potassium 4.9 Chloride 104 Carbon Dioxide 24 Anion Gap 15 BUN 16 Creatinine 0.9 Est GFR ( Amer) > 60 Est GFR (Non-Af Amer) > 60 Random Glucose 110 H Lactic Acid Calcium 10.2 Total Bilirubin 0.5 AST 55 H ALT 41 Alkaline Phosphatase 105 Total Protein 8.2 Albumin 4.3 Globulin 3.9 Albumin/Globulin Ratio 1.1 Urine Color Urine Clarity Urine pH Ur Specific [place] Urine Protein Urine Glucose (UA) Urine Ketones Urine Blood Urine Nitrate Urine Bilirubin Urine Urobilinogen Ur Leukocyte Esterase Urine RBC (Auto) Urine Microscopic WBC Ur Squamous Epith Cells Influenza Typ A,B (EIA) Negative for flu a/b 07/29/18 07/29/18 00:35 05:00 WBC RBC Hgb Hct MCV MCH MCHC RDW Plt Count MPV Neut % (Auto) Lymph % (Auto) Graham % (Auto) Eos % (Auto) Baso % (Auto) Neut # (Auto) Lymph # (Auto) Graham # (Auto) Eos # (Auto) Baso # (Auto) Sodium Potassium Chloride Carbon Dioxide Anion Gap BUN Creatinine Est GFR ( Amer) Est GFR (Non-Af Amer) Random Glucose Lactic Acid 0.9 Calcium Total Bilirubin AST ALT Alkaline Phosphatase Total Protein Albumin Globulin Albumin/Globulin Ratio Urine Color Straw Urine Clarity Clear Urine pH 7.0 Ur Specific [place] 1.008 Urine Protein Negative Urine Glucose (UA) Neg Urine Ketones Negative Urine Blood Negative Urine Nitrate Negative Urine Bilirubin Negative Urine Urobilinogen 0.2-1.0 Ur Leukocyte Esterase Small Urine RBC (Auto) 2 Urine Microscopic WBC 1 Ur Squamous Epith Cells < 1 Influenza Typ A,B (EIA) Assessment & Plan - Assessment and Plan (Free Text) Assessment: 63 y/o F with a PMHx of HIV, asthma, anxiety, gastritis and borderline personal ity is admitted for evaluation and management of persistent dyspnea and failed outpatient treatment. PLAN: >Persistent Dyspnea --Afebrile, no leukocytosis --Likely acute bronchitis and asthma exacerbation. --No improvement after Azithromycin 1 week ago. --Duonebs Q4H --Methyl-prednisolone 40mg Q8H --Levofloxacin 750mg IV daily --Pulmonology consult, Dr Calderon. --Sputum culture ordered. --Chest X-ray ordered. >HIV, asymptomatic --CD4 count 683 on 07/11/18 --HIV viral load undetectable on 07/11/18 --Home meds resumed. >Asthma, mild intermittent --Chronic, controlled --On scheduled Duonebs and IV stereoids >Anxiety/Borderline Personality disorder --Home meds resumed >Gastritis --Home meds resumed. >DVT porphylaxis --SCD's --Lovenox SC daily. Case discussed with Dr Jaycob Werner PGY-2. <Dimitri Devries - Last Filed: 07/29/18 09:23> Results - Vital Signs Recent Vital Signs: Last Vital Signs Temp 98.3 F 07/29/18 08:27 Pulse 100 H 07/29/18 08:27 Resp 20 07/29/18 08:27 BP 142/72 07/29/18 08:27 Pulse Ox 94 L 07/29/18 08:27 - Labs Result Diagrams: 07/29/18 00:35 07/29/18 00:35 Labs: Laboratory Results - last 24 hr 07/29/18 07/29/18 07/29/18 00:35 00:35 00:35 WBC 3.7 L RBC 4.15 Hgb 10.3 L Hct 31.4 L MCV 75.6 L MCH 24.7 L MCHC 32.7 L RDW 15.1 H Plt Count 173 MPV 7.5 Neut % (Auto) 58.8 Lymph % (Auto) 27.6 Graham % (Auto) 10.3 H Eos % (Auto) 1.9 Baso % (Auto) 1.4 Neut # (Auto) 2.2 Lymph # (Auto) 1.0 Graham # (Auto) 0.4 Eos # (Auto) 0.1 Baso # (Auto) 0.0 Sodium 138 Potassium 4.9 Chloride 104 Carbon Dioxide 24 Anion Gap 15 BUN 16 Creatinine 0.9 Est GFR ( Amer) > 60 Est GFR (Non-Af Amer) > 60 Random Glucose 110 H Lactic Acid Calcium 10.2 Total Bilirubin 0.5 AST 55 H ALT 41 Alkaline Phosphatase 105 Total Protein 8.2 Albumin 4.3 Globulin 3.9 Albumin/Globulin Ratio 1.1 Urine Color Urine Clarity Urine pH Ur Specific [place] Urine Protein Urine Glucose (UA) Urine Ketones Urine Blood Urine Nitrate Urine Bilirubin Urine Urobilinogen Ur Leukocyte Esterase Urine RBC (Auto) Urine Microscopic WBC Ur Squamous Epith Cells Influenza Typ A,B (EIA) Negative for flu a/b 07/29/18 07/29/18 00:35 05:00 WBC RBC Hgb Hct MCV MCH MCHC RDW Plt Count MPV Neut % (Auto) Lymph % (Auto) Graham % (Auto) Eos % (Auto) Baso % (Auto) Neut # (Auto) Lymph # (Auto) Graham # (Auto) Eos # (Auto) Baso # (Auto) Sodium Potassium Chloride Carbon Dioxide Anion Gap BUN Creatinine Est GFR ( Amer) Est GFR (Non-Af Amer) Random Glucose Lactic Acid 0.9 Calcium Total Bilirubin AST ALT Alkaline Phosphatase Total Protein Albumin Globulin Albumin/Globulin Ratio Urine Color Straw Urine Clarity Clear Urine pH 7.0 Ur Specific [place] 1.008 Urine Protein Negative Urine Glucose (UA) Neg Urine Ketones Negative Urine Blood Negative Urine Nitrate Negative Urine Bilirubin Negative Urine Urobilinogen 0.2-1.0 Ur Leukocyte Esterase Small Urine RBC (Auto) 2 Urine Microscopic WBC 1 Ur Squamous Epith Cells < 1 Influenza Typ A,B (EIA) Attending/Attestation - Attestation I have personally seen and examined this patient.: Yes I have fully participated in the care of the patient.: Yes I have reviewed all pertinent clinical information: Yes Notes (Text): 07/29/18 09:10 I saw, examined and discussed this patient with Dr Werner. I agree with the assessment and plan outlined which represent my direct input. This is a 63 years old female with hx of HIV +ve, viral load undetectable, who comes with a worsening cough with purulent sputum associated with SOB. There was no improvement after five days of Azithromycin. She will be treated for Asthmatic- Bronchitis, and although most probably viral etiology,I would treat with Levofloxacin, Duonebs, Steroids and anti s Continue treatment of HIV, GERD and Anxiety Depression . Dimitri Devries MD
[2018-07-29] MEDS: levoFLOXacin 750 mg in D5W 750 MG/150 ML BAG IVPB SCH (06:00)
[2018-07-29] MEDS ORDERED: levoFLOXacin 750 mg in D5W 750 MG/150 ML BAG IVPB ONE (06:19)
[2018-07-29] MEDS ORDERED: Albuterol 0.083% Inhal Sol (2.5 mg/3 mL) UD INH PRN (07:30)
[2018-07-29] MEDS ORDERED: Patient's Own Med (Calcium Carbonate [Caltrate] 1 TAB) PO SCH (09:00)
[2018-07-29] MEDS ORDERED: FEXOFENADINE HCL 60 MG PO SCH (09:00)
[2018-07-29] MEDS ORDERED: KETOTIFEN FUMARATE EACHEYE SCH (09:00)
[2018-07-29] MEDS ORDERED: methylPREDNISolone 40 MG in Sodium Chloride 0.9% 50 ML IVPB SCH (09:00)
[2018-07-29] MEDS: guaiFENesin-DM 600-30 mg ER Tab PO SCH ×2 (09:09→18:40)
[2018-07-29] MEDS: raNITIdine HCl 150 mg/10 ml Soln Cup PO SCH ×2 (09:10→21:07)
[2018-07-29] MEDS: KETOTIFEN FUMARATE EACHEYE SCH ×2 (09:10→21:48)
[2018-07-29] MEDS: Cholecalciferol 1,000 INTLU TAB PO SCH (09:12)
[2018-07-29] MEDS: Enoxaparin 40 mg Syringe SC SCH (09:12)
[2018-07-29] MEDS: Patient's Own Med (Bictegrav/Emtricit/Tenofov Ala [Biktarvy 50-200-25 Mg Tablet] 1 TAB) PO SCH (09:17)
[2018-07-29] MEDS: MethylPREDNISolone 40 mg Vial IVP SCH ×2 (09:18→18:40)
[2018-07-29] MEDS ORDERED: Pantoprazole 40 mg EC Tab PO ONE (09:25)
[2018-07-29] MEDS: Pantoprazole 40 mg EC Tab PO SCH (09:25)
[2018-07-29] MEDS: Albuterol-Ipratrop 3 mg / 0.5 (3 ml) UD INH SCH ×4 (09:26→21:07)
--- NOTE | 2018-07-29 09:47 | RAD ---
Date of service: 07/29/2018 HISTORY: Persistent SOB, cough COMPARISON: 07/22/2018 TECHNIQUE: Chest PA and lateral views FINDINGS: LUNGS: No active pulmonary disease. PLEURA: No significant pleural effusion identified. No pneumothorax apparent. CARDIOVASCULAR: No aortic atherosclerotic calcification present. Normal cardiac size. No pulmonary vascular congestion. OSSEOUS STRUCTURES: No significant abnormalities. VISUALIZED UPPER ABDOMEN: Normal. OTHER FINDINGS: None. IMPRESSION: No active disease.
[2018-07-29] MEDS ORDERED: ZOLPIDEM TARTRATE 10 MG PO SCH (22:00)
[2018-07-30] MEDS: Albuterol-Ipratrop 3 mg / 0.5 (3 ml) UD INH SCH ×7 (00:04→23:27)
[2018-07-30] MEDS: MethylPREDNISolone 40 mg Vial IVP SCH ×3 (01:00→21:38)
[2018-07-30] MEDS: levoFLOXacin 750 mg in D5W 750 MG/150 ML BAG IVPB SCH (05:02)
[2018-07-30 06:38] LABS: HEMOGLOBIN 10.3 g/dL (12.0-16.0); MEAN CORPUSCULAR HGB CONC 33.4 g/dL (33.0-37.0); RBC 4.13 Mil/uL (3.80-5.20); RED CELL DISTRIBUTION WIDTH 15.2 % (11.5-14.5)
[2018-07-30 06:58] LABS: WHITE BLOOD COUNT 11.1 K/uL (4.8-10.8)
[2018-07-30 07:07] LABS: BLOOD UREA NITROGEN 26 mg/dl (7-17); CALCIUM 9.4 mg/dL (8.4-10.2); GFR NON-AFRICAN AMERICAN 56
[2018-07-30] MEDS: Patient's Own Med (Bictegrav/Emtricit/Tenofov Ala [Biktarvy 50-200-25 Mg Tablet] 1 TAB) PO SCH (09:05)
[2018-07-30] MEDS: Enoxaparin 40 mg Syringe SC SCH (09:06)
[2018-07-30] MEDS: guaiFENesin-DM 600-30 mg ER Tab PO SCH ×2 (09:07→16:39)
[2018-07-30] MEDS: Pantoprazole 40 mg EC Tab PO SCH (09:07)
[2018-07-30] MEDS: Cholecalciferol 1,000 INTLU TAB PO SCH (09:08)
[2018-07-30] MEDS: raNITIdine HCl 150 mg/10 ml Soln Cup PO SCH ×2 (09:09→16:40)
[2018-07-30] MEDS: KETOTIFEN FUMARATE EACHEYE SCH ×2 (09:17→21:38)
--- NOTE | 2018-07-30 10:06 | CP.PCM.PN ---
<Dung Radford - Last Filed: 07/30/18 13:41> Subjective - Date & Time of Evaluation Date of Evaluation: 07/30/18 Time of Evaluation: 08:00 - Subjective Subjective: Patient seen and examined at bedside today. No acute event overnight. patient report feeling better, cough still present but with less secretion, she denies feeling fever, chills, worsening sob, chest pain, abd pain, diarrhea. she does complain some constipation. Objective - Vital Signs/Intake and Output Vital Signs (last 24 hours): Temp Pulse Resp BP Pulse Ox 97.6 F 102 H 20 113/68 97 07/30/18 08:21 07/30/18 08:21 07/30/18 08:21 07/30/18 08:21 07/30/18 08:21 - Medications Medications: Current Medications Acetaminophen (Tylenol 325mg Tab) 650 mg PO Q4 PRN PRN Reason: Headache Last Admin: 07/29/18 23:02 Dose: 650 mg Albuterol Sulfate (Albuterol 0.083% Inhal Dhara (2.5 Mg/3 Ml) Ud) 2.5 mg INH RQ4 PRN PRN Reason: Shortness of Breath Albuterol/Ipratropium (Duoneb 3 Mg/0.5 Mg (3 Ml) Ud) 3 ml INH RQ4 NATHANAEL Last Admin: 07/30/18 07:39 Dose: 3 ml Alprazolam (Xanax) 1 mg PO Q12 NATHANAEL Last Admin: 07/30/18 09:20 Dose: 1 mg Benzonatate (Tessalon Perles) 100 mg PO TID PRN PRN Reason: Cough Calcium Carbonate (Oscal) 500 mg PO DAILY [facility] Last Admin: 07/30/18 09:07 Dose: 500 mg Cholecalciferol (Vitamin D) 2,000 intlu PO DAILY [facility] Last Admin: 07/30/18 09:08 Dose: 2,000 intlu Enoxaparin Sodium (Lovenox) 40 mg SC DAILY [facility]; Protocol Last Admin: 07/30/18 09:06 Dose: 40 mg Guaifenesin/Dextromethorphan (Mucinex-Dm 600-30 Mg) 2 tab PO BID [facility] Last Admin: 07/30/18 09:07 Dose: 2 tab Home Med (Bictegrav/Emtricit/Tenofov Ala [Biktarvy 50-200-25 Mg Tablet]) 1 tab PO DAILY [facility] Last Admin: 07/30/18 09:05 Dose: 1 tab Home Med (Ketotifen Fumarate [Zaditor]) 1 drop EACHEYE Q12 [facility] Last Admin: 07/30/18 09:17 Dose: 1 drop Levofloxacin/Dextrose (Levaquin 750mg) 750 mg in 150 mls @ 100 mls/hr IVPB DAILY@0600 [facility] Last Admin: 07/30/18 05:02 Dose: 100 mls/hr Loratadine (Claritin) 10 mg PO BID [facility] Last Admin: 07/30/18 09:05 Dose: 10 mg Methylprednisolone (Solu-Medrol) 40 mg IVP Q8 [facility] Last Admin: 07/30/18 09:07 Dose: 40 mg Pantoprazole Sodium (Protonix Ec Tab) 40 mg PO DAILY [facility] Last Admin: 07/30/18 09:07 Dose: 40 mg Ranitidine HCl (Zantac Soln 5ml) 75 mg PO BID [facility] Last Admin: 07/30/18 09:09 Dose: 75 mg Zolpidem Tartrate (Ambien) 5 mg PO HS [facility] Last Admin: 07/29/18 23:02 Dose: 5 mg - Labs Labs: 07/30/18 06:20 07/30/18 06:20 - Constitutional Appears: Well, Non-toxic, No Acute Distress - Head Exam Head Exam: ATRAUMATIC, NORMAL INSPECTION, NORMOCEPHALIC - Eye Exam Eye Exam: EOMI, Normal appearance, PERRL Pupil Exam: NORMAL ACCOMODATION, PERRL - ENT Exam ENT Exam: Mucous Membranes Moist, Normal Exam - Neck Exam Neck Exam: Full ROM, Normal Inspection - Respiratory Exam Respiratory Exam: Clear to Ausculation Bilateral, Rales, NORMAL BREATHING PATTERN - Cardiovascular Exam Cardiovascular Exam: REGULAR RHYTHM, +S1, +S2 - GI/Abdominal Exam GI & Abdominal Exam: Soft, Normal Bowel Sounds - Extremities Exam Extremities Exam: Full ROM, Normal Capillary Refill, Normal Inspection - Back Exam Back Exam: NORMAL INSPECTION - Neurological Exam Neurological Exam: Alert, Awake, CN II-XII Intact, Normal Gait, Oriented x3 - Psychiatric Exam Psychiatric exam: Normal Affect, Normal Mood - Skin Skin Exam: Dry, Intact, Normal Color, Warm Assessment and Plan - Assessment and Plan (Free Text) Assessment: 63 y/o F with a PMHx of HIV, asthma, anxiety, gastritis and borderline personality is admitted for evaluation and management of persistent dyspnea and failed outpatient treatment. X-ray: No acute disease PLAN: Persistent Dyspnea Improving Afebrile, WBC trending up 3.7->11.1 possible due to solumedrol Likely acute bronchitis and asthma exacerbation. No improvement after Azithromycin 1 week ago. Duonebs Q4H Methyl-prednisolone 40mg Q8H Levofloxacin 750mg IV daily Pulmonology consult, Dr Calderon. Sputum culture ordered. F/U F/U mycoplasma IGM/IGG HIV, asymptomatic CD4 count 683 on 07/11/18 HIV viral load undetectable on 07/11/18 Home meds resumed. Asthma, mild intermittent Chronic, controlled On scheduled Duonebs and IV stereoids Anxiety/Borderline Personality disorder Home meds resume Gastritis Home meds resumed. DVT porphylaxis SCD's Lovenox SC daily. <Ginny Rosario - Last Filed: 07/30/18 16:04> Objective - Vital Signs/Intake and Output Vital Signs (last 24 hours): Temp Pulse Resp BP Pulse Ox 98.7 F 87 18 124/75 92 L 07/30/18 15:55 07/30/18 15:55 07/30/18 15:55 07/30/18 15:55 07/30/18 15:55 - Medications Medications: Current Medications Acetaminophen (Tylenol 325mg Tab) 650 mg PO Q4 PRN PRN Reason: Headache Last Admin: 07/29/18 23:02 Dose: 650 mg Albuterol Sulfate (Albuterol 0.083% Inhal Dhara (2.5 Mg/3 Ml) Ud) 2.5 mg INH RQ4 PRN PRN Reason: Shortness of Breath Albuterol/Ipratropium (Duoneb 3 Mg/0.5 Mg (3 Ml) Ud) 3 ml INH RQ4 [facility]HANAEL Last Admin: 07/30/18 15:55 Dose: 3 ml Alprazolam (Xanax) 1 mg PO Q12 [facility] Last Admin: 07/30/18 09:20 Dose: 1 mg Benzonatate (Tessalon Perles) 100 mg PO TID PRN PRN Reason: Cough Calcium Carbonate (Oscal) 500 mg PO DAILY [facility] Last Admin: 07/30/18 09:07 Dose: 500 mg Cholecalciferol (Vitamin D) 2,000 intlu PO DAILY [facility] Last Admin: 07/30/18 09:08 Dose: 2,000 intlu Enoxaparin Sodium (Lovenox) 40 mg SC DAILY [facility]; Protocol Last Admin: 07/30/18 09:06 Dose: 40 mg Guaifenesin/Dextromethorphan (Mucinex-Dm 600-30 Mg) 2 tab PO BID [facility] Last Admin: 07/30/18 09:07 Dose: 2 tab Home Med (Bictegrav/Emtricit/Tenofov Ala [Biktarvy 50-200-25 Mg Tablet]) 1 tab PO DAILY [facility] Last Admin: 07/30/18 09:05 Dose: 1 tab Home Med (Ketotifen Fumarate [Zaditor]) 1 drop EACHEYE Q12 [facility] Last Admin: 07/30/18 09:17 Dose: 1 drop Levofloxacin/Dextrose (Levaquin 750mg) 750 mg in 150 mls @ 100 mls/hr IVPB DAILY@0600 [facility] Last Admin: 07/30/18 05:02 Dose: 100 mls/hr Loratadine (Claritin) 10 mg PO BID [facility] Last Admin: 07/30/18 09:05 Dose: 10 mg Methylprednisolone (Solu-Medrol) 40 mg IVP Q8 [facility] Last Admin: 07/30/18 09:07 Dose: 40 mg Pantoprazole Sodium (Protonix Ec Tab) 40 mg PO DAILY [facility] Last Admin: 07/30/18 09:07 Dose: 40 mg Ranitidine HCl (Zantac Soln 5ml) 75 mg PO BID [facility] Last Admin: 07/30/18 09:09 Dose: 75 mg Zolpidem Tartrate (Ambien) 5 mg PO HS [facility] Last Admin: 07/29/18 23:02 Dose: 5 mg - Labs Labs: 07/30/18 06:20 07/30/18 06:20 Attending/Attestation - Attestation I have personally seen and examined this patient.: Yes I have fully participated in the care of the patient.: Yes I have reviewed all pertinent clinical information, including history, physical exam and plan: Yes Notes (Text): Diagnoses: Acute Bronchitis Asthma exacerbation, hx of Mild Intermittent Asthma HIV asymptomatic Anxiety Dis - CXR : negative - cont IV Solumedrol , taper to 40mg q 12 - cont Albuterol Neb tx - cont Antiretrovirals - cont Levaquin IV
--- NOTE | 2018-07-30 22:50 | CP.PCM.CON ---
History of Present Illness - History of Present Illness History of Present Illness: 63 y/o female with an acute asthma ex 2/2 probable viral tracheobronchitis. Feeling much better now. Neversmoker. HIV Pos with very low viral load as per patient. NKDA. VS as below. Head: Neg Adeno Pos Giorgi. Heart RRR NS1S2 Neg M Lungs: clear to A and P Abdo S, NT, pos BS. Ext, No c,c,e Neuro: GNF Labs as below.. Imaging studies as below. a/p As above. Cont IV abx, monitor WBC # , temp curve, and cultures. Seral Peak Flows. Cont Steroids and ABX. If patient can walk without Sx, would dc on PO tapering steroids and Abx. F/u with [facility]. Siging out of case. Past Patient History - Infectious Disease Hx of Infectious Diseases: None - Past Medical History & Family History Past Medical History?: Yes - Past Social History Smoking Status: Never Smoked - CARDIAC Hx Cardiac Disorders: No Hx Hypertension: No - PULMONARY Hx Respiratory Disorders: Yes Hx Asthma: Yes Hx Bronchitis: Yes - NEUROLOGICAL Hx Neurological Disorder: No Hx Seizures: No - HEENT Hx HEENT Problems: Yes - RENAL Hx Chronic Kidney Disease: No - ENDOCRINE/METABOLIC Hx Endocrine Disorders: No - HEMATOLOGICAL/ONCOLOGICAL Hx Blood Disorders: Yes Hx Human Immunodeficiency Virus (HIV): Yes - INTEGUMENTARY Hx Dermatological Problems: No - MUSCULOSKELETAL/RHEUMATOLOGICAL Hx Musculoskeletal Disorders: Yes Hx Falls: No Hx Osteoporosis: Yes - GASTROINTESTINAL Hx Gastrointestinal Disorders: Yes Hx Gastritis: Yes - GENITOURINARY/GYNECOLOGICAL Hx Genitourinary Disorders: No Hx Sexually Transmitted Disorders: No - PSYCHIATRIC Hx Psychophysiologic Disorder: Yes Hx Anxiety: Yes Hx Depression: Yes Hx Substance Use: No Other/Comment: borderline personality - SURGICAL HISTORY Hx Surgeries: Yes Other/Comment: Hemmoroidectomy(2014) - ANESTHESIA Hx Anesthesia: Yes Hx Anesthesia Reactions: No (n/v) Meds Allergies/Adverse Reactions: Allergies Allergy/AdvReac Type Severity Reaction Status Date / Time No Known Allergies Allergy Verified 07/22/18 13:33 - Medications Medications: Current Medications Acetaminophen (Tylenol 325mg Tab) 650 mg PO Q4 PRN PRN Reason: Headache Last Admin: 07/29/18 23:02 Dose: 650 mg Albuterol Sulfate (Albuterol 0.083% Inhal Dhara (2.5 Mg/3 Ml) Ud) 2.5 mg INH RQ4 PRN PRN Reason: Shortness of Breath Albuterol/Ipratropium (Duoneb 3 Mg/0.5 Mg (3 Ml) Ud) 3 ml INH RQ4 [facility] Last Admin: 07/30/18 19:39 Dose: 3 ml Alprazolam (Xanax) 1 mg PO Q12 [facility] Last Admin: 07/30/18 21:41 Dose: 1 mg Benzonatate (Tessalon Perles) 100 mg PO TID PRN PRN Reason: Cough Calcium Carbonate (Oscal) 500 mg PO DAILY [facility] Last Admin: 07/30/18 09:07 Dose: 500 mg Cholecalciferol (Vitamin D) 2,000 intlu PO DAILY [facility] Last Admin: 07/30/18 09:08 Dose: 2,000 intlu Enoxaparin Sodium (Lovenox) 40 mg SC DAILY [facility]; Protocol Last Admin: 07/30/18 09:06 Dose: 40 mg Guaifenesin/Dextromethorphan (Mucinex-Dm 600-30 Mg) 2 tab PO BID [facility] Last Admin: 07/30/18 16:39 Dose: 2 tab Home Med (Bictegrav/Emtricit/Tenofov Ala [Biktarvy 50-200-25 Mg Tablet]) 1 tab PO DAILY [facility] Last Admin: 07/30/18 09:05 Dose: 1 tab Home Med (Ketotifen Fumarate [Zaditor]) 1 drop EACHEYE Q12 [facility] Last Admin: 07/30/18 21:38 Dose: 1 drop Levofloxacin/Dextrose (Levaquin 750mg) 750 mg in 150 mls @ 100 mls/hr IVPB DAILY@0600 [facility] Last Admin: 07/30/18 05:02 Dose: 100 mls/hr Loratadine (Claritin) 10 mg PO BID [facility] Last Admin: 07/30/18 16:39 Dose: 10 mg Methylprednisolone (Solu-Medrol) 40 mg IVP Q12 [facility] Last Admin: 07/30/18 21:38 Dose: 40 mg Pantoprazole Sodium (Protonix Ec Tab) 40 mg PO DAILY [facility] Last Admin: 07/30/18 09:07 Dose: 40 mg Ranitidine HCl (Zantac Soln 5ml) 75 mg PO BID [facility] Last Admin: 07/30/18 16:40 Dose: 75 mg Zolpidem Tartrate (Ambien) 5 mg PO HS [facility] Last Admin: 07/30/18 21:41 Dose: 5 mg Results - Vital Signs Recent Vital Signs: Last Vital Signs Temp 98.7 F 07/30/18 15:55 Pulse 87 07/30/18 15:55 Resp 18 07/30/18 15:55 BP 124/75 07/30/18 15:55 Pulse Ox 92 L 07/30/18 15:55 - Labs Result Diagrams: 07/30/18 06:20 07/30/18 06:20 Labs: Laboratory Results - last 24 hr 07/29/18 07/30/18 07/30/18 21:05 06:20 06:20 WBC 11.1 H D RBC 4.13 Hgb 10.3 L Hct 31.0 L MCV 75.0 L MCH 25.0 L MCHC 33.4 RDW 15.2 H Plt Count 224 Sodium 136 Potassium 4.1 Chloride 105 Carbon Dioxide 21 L Anion Gap 14 BUN 26 H Creatinine 1.0 Est GFR ( Amer) > 60 Est GFR (Non-Af Amer) 56 Random Glucose 163 H Calcium 9.4 Ur L.pneumophila Ag Negative
[2018-07-31] MEDS: Albuterol-Ipratrop 3 mg / 0.5 (3 ml) UD INH SCH ×3 (03:05→11:02)
[2018-07-31] MEDS: levoFLOXacin 750 mg in D5W 750 MG/150 ML BAG IVPB SCH (05:01)
[2018-07-31 06:12] LABS: HEMOGLOBIN 9.8 g/dL (12.0-16.0); MEAN CORPUSCULAR HEMOGLOBIN 24.7 pg (27.0-31.0); MEAN CORPUSCULAR HGB CONC 32.5 g/dL (33.0-37.0); RBC 3.98 Mil/uL (3.80-5.20); RED CELL DISTRIBUTION WIDTH 15.6 % (11.5-14.5); WHITE BLOOD COUNT 12.7 K/uL (4.8-10.8)
[2018-07-31 06:32] LABS: BLOOD UREA NITROGEN 18 mg/dl (7-17); CALCIUM 9.3 mg/dL (8.4-10.2); GFR NON-AFRICAN AMERICAN > 60
[2018-07-31 08:50] VITALS: BP 116/69; PULSE 77; RESP 18; TEMP 97; O2SAT 97
[2018-07-31] MEDS: Patient's Own Med (Bictegrav/Emtricit/Tenofov Ala [Biktarvy 50-200-25 Mg Tablet] 1 TAB) PO SCH (09:30)
[2018-07-31] MEDS: KETOTIFEN FUMARATE EACHEYE SCH (09:30)
[2018-07-31] MEDS: Enoxaparin 40 mg Syringe SC SCH (09:31)
[2018-07-31] MEDS: Pantoprazole 40 mg EC Tab PO SCH (09:31)
[2018-07-31] MEDS: guaiFENesin-DM 600-30 mg ER Tab PO SCH (09:31)
[2018-07-31] MEDS: MethylPREDNISolone 40 mg Vial IVP SCH (09:32)
[2018-07-31] MEDS: raNITIdine HCl 150 mg/10 ml Soln Cup PO SCH (09:32)
[2018-07-31] MEDS: Cholecalciferol 1,000 INTLU TAB PO SCH (09:32)
--- NOTE | 2018-07-31 11:19 | CP.PCM.DIS ---
Provider - Provider Date of Admission: 07/29/18 04:13 Attending physician: Dimitri Devries Primary care physician: Dash Carvajal MD Consults: 07/29/18 05:35 Pulmonology Consult Routine Comment: Consulting Provider: Kameron Calderon Consulting Physician: Kameron Calderon Reason for Consult: Persistent SOB, failed outpatient treatment Time Spent in preparation of Discharge (in minutes): 15 Diagnosis - Discharge Diagnosis (1) Acute bronchitis Status: Acute (2) Respiratory distress Status: Acute (3) Anxiety Status: Chronic (4) Asthma, intermittent Status: Chronic (5) HIV (human immunodeficiency virus infection) Status: Chronic Hospital Course - Lab Results Lab Results: Micro Results 07/30/18 15:16 Sputum Gram Stain - Final 07/30/18 09:28 Sputum Gram Stain - Final Most Recent Lab Values WBC 12.7 K/uL (4.8-10.8) H 07/31/18 05:57 RBC 3.98 Mil/uL (3.80-5.20) 07/31/18 05:57 Hgb 9.8 g/dL (12.0-16.0) L 07/31/18 05:57 Hct 30.3 % (34.0-47.0) L 07/31/18 05:57 MCV 76.0 fl (81.0-99.0) L 07/31/18 05:57 MCH 24.7 pg (27.0-31.0) L 07/31/18 05:57 MCHC 32.5 g/dL (33.0-37.0) L 07/31/18 05:57 RDW 15.6 % (11.5-14.5) H 07/31/18 05:57 Plt Count 246 K/uL (130-400) 07/31/18 05:57 MPV 7.5 fl (7.2-11.7) 07/29/18 00:35 Neut % (Auto) 58.8 % (50.0-75.0) 07/29/18 00:35 Lymph % (Auto) 27.6 % (20.0-40.0) 07/29/18 00:35 [place] % (Auto) 10.3 % (0.0-10.0) H 07/29/18 00:35 Eos % (Auto) 1.9 % (0.0-4.0) 07/29/18 00:35 Baso % (Auto) 1.4 % (0.0-2.0) 07/29/18 00:35 Neut # (Auto) 2.2 K/uL (1.8-7.0) 07/29/18 00:35 Lymph # (Auto) 1.0 K/uL (1.0-4.3) 07/29/18 00:35 [place] # (Auto) 0.4 K/uL (0.0-0.8) 07/29/18 00:35 Eos # (Auto) 0.1 K/uL (0.0-0.7) 07/29/18 00:35 Baso # (Auto) 0.0 K/uL (0.0-0.2) 07/29/18 00:35 Sodium 138 mmol/l (132-148) 07/31/18 05:57 Potassium 4.6 MMOL/L (3.6-5.0) 07/31/18 05:57 Chloride 106 mmol/L (98-107) 07/31/18 05:57 Carbon Dioxide 22 mmol/L (22-30) 07/31/18 05:57 Anion Gap 15 (10-20) 07/31/18 05:57 BUN 18 mg/dl (7-17) H 07/31/18 05:57 Creatinine 0.7 mg/dl (0.7-1.2) 07/31/18 05:57 Est GFR ( Amer) > 60 07/31/18 05:57 Est GFR (Non-Af Amer) > 60 07/31/18 05:57 Random Glucose 136 mg/dL (65-105) H 07/31/18 05:57 Lactic Acid 0.9 mmol/L (0.7-2.1) 07/29/18 00:35 Calcium 9.3 mg/dL (8.4-10.2) 07/31/18 05:57 Total Bilirubin 0.5 mg/dl (0.2-1.3) 07/29/18 00:35 AST 55 U/L (14-36) H 07/29/18 00:35 ALT 41 U/L (9-52) 07/29/18 00:35 Alkaline Phosphatase 105 U/L (38-126) 07/29/18 00:35 Total Protein 8.2 G/DL (6.3-8.2) 07/29/18 00:35 Albumin 4.3 g/dL (3.5-5.0) 07/29/18 00:35 Globulin 3.9 gm/dL (2.2-3.9) 07/29/18 00:35 Albumin/Globulin Ratio 1.1 (1.0-2.1) 07/29/18 00:35 Urine Color Straw (YELLOW) 07/29/18 05:00 Urine Clarity Clear (Clear) 07/29/18 05:00 Urine pH 7.0 (5.0-8.0) 07/29/18 05:00 Ur Specific [place] 1.008 (1.003-1.030) 07/29/18 05:00 Urine Protein Negative mg/dL (NEGATIVE) 07/29/18 05:00 Urine Glucose (UA) Neg mg/dL (NEGATIVE) 07/29/18 05:00 Urine Ketones Negative mg/dL (NEGATIVE) 07/29/18 05:00 Urine Blood Negative (NEGATIVE) 07/29/18 05:00 Urine Nitrate Negative (NEGATIVE) 07/29/18 05:00 Urine Bilirubin Negative (NEGATIVE) 07/29/18 05:00 Urine Urobilinogen 0.2-1.0 mg/dL (0.2-1.0) 07/29/18 05:00 Ur Leukocyte Esterase Small Tae/uL (Negative) 07/29/18 05:00 Urine RBC (Auto) 2 /hpf (0-3) 07/29/18 05:00 Urine Microscopic WBC 1 /hpf (0-5) 07/29/18 05:00 Ur Squamous Epith Cells < 1 /hpf (0-5) 07/29/18 05:00 Influenza Typ A,B (EIA) Negative for flu a/b (NEGATIVE) 07/29/18 00:35 Ur L.pneumophila Ag Negative (NEGATIVE) 07/29/18 21:05 - Hospital Course Hospital Course: 3 y/o F with a PMHx of HIV, asthma, anxiety and borderline personality presented to ED complaining of severe SOB, productive cough with thick green sputum and wheezing that began 2 weeks ago. Patient admitted for evaluation and managment of persistent dyspnea and failed outpatient treatment. ED Course: --VS with slight tachycardia and elevated BP. --CBC with leukopenia, CMP w/ increased AST, rapid influenza was negative. --Duoneb 9ml and 3mL, Solu-Medrol 125mg, MgSO4 2gr x2 were administered. maging studies as below. X-ray: No acute disease During her stay patient remained afebrile, WBC trended up possible due to steroid treatment. Patient was placed on Levofloxacin 750mg, Pulmonology was consulted which recommended Sputum culture with gram stain, mycoplasma IGM/IGG and legionella. Patient was placed on Duoneb and IV steroid with pulm therapy for asthma and her HIV was managed. Patient seen and examined at bedside, no acute distress overnight. Patient report feeling much better, she denies having SOB. Patient denies chest pain, headache, chest pain, abd pain, diarrhea, or constipation. Patient is comfortable to be discharged home Patient chart were reviewed, patient is stable to be discharged and follow up with PCP. Patient will be discharged on Levaquin 750mg Medrol pack Guifenasen for mucus PCP to follow up with sputum culture final result, Mycoplasma lab result ER precaution given. Discharge Exam - Head Exam Head Exam: ATRAUMATIC, NORMAL INSPECTION, NORMOCEPHALIC - Eye Exam Eye Exam: EOMI, Normal appearance, PERRL Pupil Exam: NORMAL ACCOMODATION, PERRL - Respiratory Exam Respiratory Exam: Clear to PA & Lateral, NORMAL BREATHING PATTERN, UNREMARKABLE - Cardiovascular Exam Cardiovascular Exam: REGULAR RHYTHM, +S1, +S2 - GI/Abdominal Exam GI & Abdominal Exam: Normal Bowel Sounds, Unremarkable - Back Exam Back exam: NORMAL INSPECTION - Neurological Exam Neurological exam: Alert, CN II-XII Intact, Normal Gait, Oriented x3, Reflexes Normal - Psychiatric Exam Psychiatric exam: Normal Affect, Normal Mood - Skin Skin Exam: Dry, Intact, Normal Color, Warm Discharge Plan - Discharge Medications Prescriptions: guaiFENesin/Dextromethorphan [Mucinex-DM 600-30 mg] 2 tab PO BID #20 tab levoFLOXacin [Levaquin] 750 mg PO DAILY #5 tab Methylprednisolone [Medrol Dose Pack (21 tabs)] 4 mg PO ASDIR #21 mg - Follow Up Plan Condition: FAIR Disposition: HOME/ ROUTINE Patient education suggested?: Yes Instructions: Acute Bronchitis Additional Instructions: hacer ronald con rivas doctor primario dentro de 1 semana Referrals: Dash Carvajal MD [Primary Care Provider] - Kameron Calderon MD [Staff Provider] -
== END 2018-07-31 15:03 | disposition home or self-care (01) ==
LOC: H.ER 22:24 → H.ERHOLD 07-29 04:13 → H.MEDSURG1 07-29 22:37
PROVIDERS: ADMIT Internal Medicine; ATTEND Internal Medicine
DX: J45.21 Mild intermittent asthma with (acute) exacerbation (principal); K29.70 Gastritis, unspecified, without bleeding; J20.9 Acute bronchitis, unspecified; Z21 Asymptomatic human immunodeficiency virus [HIV] infection status; F41.9 Anxiety disorder, unspecified; F32.9 Major depressive disorder, single episode, unspecified; M81.0 Age-related osteoporosis without current pathological fracture; Z90.710 Acquired absence of both cervix and uterus; F60.3 Borderline personality disorder; D50.9 Iron deficiency anemia, unspecified; Z79.83 Long term (current) use of bisphosphonates
CPT/HCPCS: 36415; 71046; 80048; 80053; 81003; 83605; 85025; 85027; 86738; 87070; 87205; 87449; 87804; 94640; 96372; 96374; 99285; G0378; J1650; J2920; J2930